=== PATIENT | male | born 1945 | race Caucasian/White ===

== ENCOUNTER 2016-07-11 10:26 | Inpatient (IN) | payer OTHER ==
[~2016-07-11] VITALS: Ht 170.1 cm; Wt 69.5 kg
[2016-07-11] VITALS (9 sets, daily range): BP systolic 119–180; BP diastolic 62–105
--- NOTE | ~2016-07-11 | PR ---
[place], [place] PROGRESS NOTE NAME: JAMEL PINON [facility] #: [id number] UNIT #: [id number] ROOM: 522 DOCTOR: JUAREZ OHARA MD BIRTHDATE: [birth year] DOS: 07/14/2016 SUBJECTIVE: The patient has no complaints. He feels good. OBJECTIVE: VITAL SIGNS: Blood pressure is 129/82, pulse of 80s, respirations 18, temperature 98.5. LUNGS: Clear. HEART: Regular. ABDOMEN: Soft. EXTREMITIES: Without any edema. ASSESSMENT AND PLAN: 1. Multifocal pneumonia, possible gram negative with patchy consolidation of the medial lung bases. Blood cultures have come back negative. Repeat chest x-ray yesterday showed complete clearing of the pneumonia. So, the patient is going to be discharged to home today to follow up as an outpatient. 2. Benign hypertension, controlled. 3. Abnormal EKG. Echo was done, which showed diastolic dysfunction stage 1, but no other abnormalities were noted. A trivial aortic stenosis was also seen. JUAREZ OHARA MD CM:PNTRANS [id number] JUAREZ OHARA MD 07/14/16 1110 interface
--- NOTE | ~2016-07-11 | PR ---
[place], [place] PROGRESS NOTE NAME: JAMEL PINON [facility] #: [id number] UNIT #: [id number] ROOM: 522 DOCTOR: JUAREZ OHARA MD BIRTHDATE: [birth year] DOS: 07/13/2016 SUBJECTIVE: The patient feels good and is not having any complaints. OBJECTIVE: VITAL SIGNS: Blood pressure is 136/63, pulse of 86, respirations 20, temperature 98.4. LUNGS: Diminished breath sounds, clear this morning. HEART: Regular. ABDOMEN: Obese. EXTREMITIES: Without any edema. ASSESSMENT AND PLAN: 1. The patient admitted with multifocal pneumonia, on IV antibiotics. Blood cultures are pending. Repeat chest x-ray will be ordered today to see whether there is any improvement. 2. Benign hypertension. Echocardiogram is ordered. Check LV function. JUAREZ OHARA MD CM:HARJIT [id number] JUAREZ OHARA MD 07/13/16 222 interface
--- NOTE | ~2016-07-11 | DS ---
[place], [place] DISCHARGE SUMMARY NAME: JAMEL PINON [facility] #: [id number] UNIT #: [id number] ROOM: 522 DOCTOR: JUAREZ OHARA MD BIRTHDATE: [birth year] DOS: 07/14/2016 DIAGNOSES: 1. Bilateral pneumonia with consolidation resolved, possible gram negative. 2. Acute respiratory distress. 3. Hypoxic respiratory failure, acute. 4. Benign hypertension. 5. Echocardiogram shows diastolic dysfunction. 6. Peripheral neuropathy. 7. Degenerative joint disease, status post right hip replacement. 8. Chronic pain. MEDICATIONS: Same as on admission. Only new prescription given was Ceftin 250 twice daily for 5 days. HOSPITAL COURSE: The patient is 71 years old, comes into the Emergency Room with complaints of difficulty breathing. Please review the H and P for details. After admission, the patient was placed on IV antibiotics. Blood cultures were ordered. The patient had pneumonia with consolidation. After being placed on antibiotics, the patient did not have any new complaints. Oxygen saturation improved and he has come off the oxygen. Chest x-ray finally on shows complete clearing of pneumonia. Echocardiogram shows the above-mentioned findings. The patient is therefore being discharged to home to be followed up as an outpatient. JUAREZ OHARA MD CM:MARIA [id number] JUAREZ OHARA MD 07/14/16 0834 interface
--- NOTE | ~2016-07-11 | EKG ---
[place], [place] ELECTROCARDIOGRAM REPORT NAME: JAMEL PINON UNIT #: [id number] ROOM: 522 DOCTOR: DAYO MIGUEL MD BIRTHDATE: [birth year] DOS: 07/11/2016 TIME: 10:47 a.m. Sinus rhythm with low voltage in the extremity leads. Poor precordial R-wave progression. Abnormal electrocardiogram. DAYO MIGUEL MD CM:EKGRPT:ELECTROCARDIOGRAM REPORT [id number] DAYO MIGUEL MD
--- NOTE | ~2016-07-11 | WRIGHTHP ---
[place], [place] PATIENT HISTORY AND PHYSICAL EXAM NAME: JAMEL PINON [facility] #: [id number] UNIT #: [id number] ROOM: 522 DOCTOR: JUAREZ OHARA MD BIRTHDATE: [birth year] DOS: 07/11/2016 HISTORY OF PRESENT ILLNESS: The patient is 71 years old. The patient is very well known to us. The patient states that he has been sick for the last couple of days with cough and shortness of breath. The patient decided to come in to the Emergency Room because of his history of pneumonia. Routine blood work and chest x-ray was done and was found to have pneumonia with hypoxic respiratory failure, and he was admitted. He denies having any chest pains, any palpitations, does not have any fever or chills, does not have any abdominal pain, any nausea, any emesis. PAST MEDICAL HISTORY: Significant for; 1. Chronic pain for which he sees the pain clinic. 2. History of pneumonia about a year ago. 3. Peripheral neuropathy. 4. Benign hypertension. 5. Primary insomnia. MEDICATIONS: Amlodipine 5 mg daily, gabapentin 600 mg twice daily, Naprosyn 500 b.i.d., MiraLax 17 g daily. SOCIAL HISTORY: Nonsmoker, does not use any alcohol. PHYSICAL EXAMINATION: GENERAL: He is awake and alert and oriented, in mild respiratory distress. VITAL SIGNS: Graphic trend shows that he is afebrile. Blood pressure is 142/80, pulse of 76, respirations 16. LUNGS: Diminished breath sounds. Scattered rales heard at the bases. HEART: Regular. ABDOMEN: Obese, soft. EXTREMITIES: Without any edema. LABORATORY DATA: Lactic acid normal at 1.3. WBC count is 11.7, platelets are normal. BUN 10, creatinine 0.9. Electrolytes were normal. ASSESSMENT AND PLAN: 1. Multifocal pneumonia. The patient is placed on IV antibiotics. 2. Blood cultures were done in the ER, elevated white cell count was noted. 3. Acute hypoxic respiratory failure. Supplementation has been ordered. The pneumonia is most likely Gram-negative. 4. Benign hypertension, controlled. 5. Chronic pain syndrome, stable on the current dose of medications. [place], [place] PATIENT HISTORY AND PHYSICAL EXAM NAME: JAMEL PINON [facility] #: [id number] UNIT #: [id number] ROOM: 522 DOCTOR: JUAREZ OHARA MD BIRTHDATE: [birth year] JUAREZ OHARA MD CM:HISPHYS:PATIENT HISTORY AND PHYSICAL EXAMINATION 7 9 JUAREZ OHARA MD 07/12/16939 interface
[~2016-07-11 10:26] MED LIST: MEDROL DOSEPAK4 MG PO; MS CONTIN30 MG PO; MS CONTIN60 MG PO
[2016-07-11] MEDS ORDERED: AMLODIPINE BESYL5 MG PO (10:38)
[2016-07-11] MEDS ORDERED: NEXIUM20 MG/PACK PO (10:38)
[2016-07-11] MEDS ORDERED: GABAPENTIN TAB600 MG PO (10:38)
[2016-07-11 10:45] LABS: BASO % 0.3 % (0.0-1.0); EOS # 0.1 10*3/uL (0.0-0.4); EOS % 0.9 % (1.0-4.0); HEMATOCRIT 43.2 % (42.0-52.0); HEMOGLOBIN 14.3 g/dl (14.0-18.0); IG # 0.1 10*3/uL (0.0-0.1); LYMPH % 8.8 % (27.0-41.0); MEAN CELL VOLUME 89.4 fl (80.0-94.0); MEAN CORPUSCULAR HGB 29.6 pg (27.0-31.0); MEAN CORPUSCULAR HGB CONC 33.1 g/dl (33.0-37.0); MEAN PLATELET VOLUME 10.1 fl (9.6-12.3); MONO # 0.7 10*3/uL (0.1-1.0); MONO % 5.7 % (3.0-9.0); NEUT # 9.8 10*3/uL (2.3-7.9); NEUT % 83.5 % (47.0-73.0); PLATELET COUNT AUTOMATED 215 10*3/uL (130-400); RED BLOOD COUNT 4.83 10*6/uL (4.50-5.90); RED CELL DISTRI WIDTH 13.4 % (0-14.5); WHITE BLOOD COUNT 11.7 10*3/uL (4.8-10.8)
[2016-07-11 11:01] LABS: ALBUMIN 3.1 gm/dl (3.1-4.5); ALKALINE PHOSPHATASE 110 U/L (45-117); BILIRUBIN, TOTAL 0.9 mg/dl (0.2-1.0); BUN 10 mg/dl (7-24); CARBON DIOXIDE 29 mmol/L (21-32); CHLORIDE 105 mmol/L (98-107); EST GLOM FILT AFRICAN AMERICAN > 60 ml/min; GLUCOSE 120 mg/dL (65-99); POTASSIUM 3.9 mmol/L (3.5-5.1); SGOT/AST 26 IU/L (3-35); SGPT/ALT 27 U/L (12-78); SODIUM 142 mmol/L (136-145); TOTAL PROTEIN 7.7 gm/dL (6.4-8.2)
[2016-07-11 11:02] LABS: TROPONIN I < 0.015 ng/ml (<0.045)
[2016-07-11] MEDS ORDERED: CLARITIN10 MG PO (11:10)
[2016-07-11] MEDS ORDERED: PREDNISONE10 MG PO (11:10)
[2016-07-11] MEDS ORDERED: ROBITUSSIN DM 105 ML PO (11:10)
[2016-07-11] MEDS ORDERED: FLONASE ALLERG9.9 ML NAS (11:10)
[2016-07-11] MEDS ORDERED: EC NAPROSYN500 MG PO (13:54)
[2016-07-11] MEDS ORDERED: MIRALAX17 GM PO (13:55)
[2016-07-12] VITALS: BP 102/53
[2016-07-12 08:00] VITALS: BP 135/81
[2016-07-12 12:00] VITALS: BP 120/69
[2016-07-12 16:00] VITALS: BP 102/53
[2016-07-12 20:00] VITALS: BP 140/75
[2016-07-13] VITALS: BP 136/63
[2016-07-13 08:00] VITALS: BP 148/87
[2016-07-13 12:00] VITALS: BP 129/72
[2016-07-13 16:00] VITALS: BP 121/66
[2016-07-13 20:00] VITALS: BP 119/67
[2016-07-14] VITALS: BP 129/82
[2016-07-14 08:00] VITALS: BP 130/92
[2016-07-14] MEDS ORDERED: CEFUROXIME AXE250 MG PO (08:10)
== END 2016-07-14 09:15 | disposition home or self-care (01) | DRG 177 ==
LOC: ED 10:26 → 5E 12:21 → EDHOLD 12:21 → 5E 12:39
PROVIDERS: Nurse Practitioner Family
DX: J15.6 Pneumonia due to other Gram-negative bacteria (principal); J96.01 Acute respiratory failure with hypoxia; I10 Essential (primary) hypertension; Z96.641 Presence of right artificial hip joint; M19.90 Unspecified osteoarthritis, unspecified site; G62.9 Polyneuropathy, unspecified; G89.4 Chronic pain syndrome; R94.31 Abnormal electrocardiogram [ECG] [EKG]

== ENCOUNTER 2017-04-21 10:24 | Inpatient (IN) | payer OTHER ==
[~2017-04-21] VITALS: Ht 172.7 cm; Wt 60.4 kg
--- NOTE | ~2017-04-21 | CON ---
[place], [place] REPORT OF CONSULTATION NAME: JAMEL PNION [facility] #: [id number] UNIT #: [id number] ROOM: 519 DOCTOR: JAMES HARRISON MD,SILVINO BIRTHDATE: [birth year] DOS: 04/26/2017 PULMONARY CONSULTATION, EVALUATION AND MANAGEMENT CONSULTATION REQUESTED BY: Dr. Gwen Lebron. REASON FOR CONSULTATION: To assess the abnormal finding of the CT scan of the chest with possible malignancy and the process. HISTORY OF PRESENT ILLNESS: A 72-year-old white male who has been admitted under care of Dr. Gwen Lebron on 04/21. The patient was brought to the hospital. The patient has been noted with significant increased shortness of breath, difficulty breathing. The shortness of breath has been noted gradually progressive. The patient was complaining of symptoms of excessive coughing, intermittent sputum expectoration, which is described greenish at times. Sometimes, it was described to be yellowish. There was no hemoptysis. The patient denies symptoms of wheezing. Denies symptoms of acute chest pain. He stated lost about 15 pounds of body weight in the past 4-5 weeks. The patient denies any symptoms of chest trauma. He has a chest x-ray, which was done reported with findings of pneumonia. He has a CT scan of the chest, which was done yesterday, which shows more abnormality described in my latter part of the consultation. The patient is noted quite anxious and eager and wanted to be discharged home today as told to me by the patient as well as Dr. Gwen Lebron. REVIEW OF SYSTEMS: CONSTITUTIONAL SYMPTOMS: The patient was complaining of somewhat fatigued. Denies symptoms of fever or chills. A 15 pounds of body weight loss was described. He was also noted reduction of the appetite and stating that it has been noted somewhat better at this time. EYES: Denies any burning, dryness, redness or discharge. EAR, NOSE, THROAT SYMPTOMS: Denies sore throat, hoarseness, otalgia, postnasal drainage or epistaxis. CARDIOVASCULAR: Denies any symptoms of chest pain. Denies any palpitation, edema or pain of the lower extremities. GASTROINTESTINAL SYMPTOMS: Weight loss previously reported. There were no symptoms of nausea, vomiting, diarrhea, abdominal pain, hematemesis, melena, or hematochezia. GENITOURINARY SYMPTOMS: No dysuria, suprapubic pain, or hematuria. MUSCULOSKELETAL: No acute joint pain, redness, or tenderness. SKIN: No lesions or rashes. CENTRAL NERVOUS SYSTEM: No dizziness, headache, diplopia, syncopal episodes or seizures. Remaining systems were reviewed. They were noted all negative. PAST MEDICAL HISTORY: Noted as: 1. Hypertension. 2. Degenerative arthritis. SOCIAL HISTORY: The patient recently . He has 2 children. Smoking was [place], [place] REPORT OF CONSULTATION NAME: JAMEL PINON UNIT #: [id number] ROOM: [facility] DOCTOR: JAMES HARRISON MDSILVINO BIRTHDATE: [birth year] noted since teens 1.5 pack of cigarettes per day, that was discontinued since 1999. He has worked in the [employer] for about 15 years. There is no history of chronic alcohol use or any history of illicit drugs. SURGICAL HISTORY: 1. The patient has a right hip prosthesis with 3 surgeries done previously. 2. Surgery on the right knee as well. FAMILY HISTORY: Essentially noted noncontributory. MEDICATIONS: Medications, which have been currently administered noted as use of omeprazole, morphine sulfate, amlodipine, Norvasc, Neurontin, Rocephin and others. DRUG ALLERGY HISTORY: NOTED ALLERGY TO THE BACTRIM. PHYSICAL EXAMINATION: GENERAL: This is a 72-year-old male, appears frail, sitting on the chair, without any distress. The patient's [id number] is present in the room with the RN as well. VITAL SIGNS: Height of 5 feet 8 inches, weight of 133 pounds, BMI 20. Vital signs, which have been recorded showed the temperature noted as normal, respiratory rate range between 18-20, heart rate of 91-101. Blood pressure of 93/60-114/68. Pulse oxygen saturation recorded on room air 94% saturation. HEENT: Head was atraumatic. Eyes nonicterus. NECK: Supple. There were no JVD elevation. There was no lymphadenopathy palpable in the neck. CARDIOVASCULAR SYSTEM: S1, S2 audible. LUNGS: Noted without any wheezing. Decreased breath sounds are noted somewhat on the right lung. ABDOMEN: Noted flat, soft, nontender. Bowel sounds present. EXTREMITIES: Noted without any edema, clubbing or cyanosis. CENTRAL NERVOUS SYSTEM: Cranial nerves 2-12 intact. SKIN: Without any lesions or rashes. MUSCULOSKELETAL SYMPTOMS: Without any acute deformities. LABORATORY DATA: CBC on 04/21 - WBC count 11, hemoglobin 11.5 and 35.7, platelet count was normal. CBC that was done today - WBC count 19.7, hemoglobin 12.9, hematocrit 39.8, platelet count of 464,000, 83% segmented neutrophils. BMP was noted as normal today. The CMP on 04/21 noted normal BUN and creatinine, albumin 1.8, AST of 44. Blood culture on 04/21 of this month 2 sets showed no bacterial growth. Radiology data was personally reviewed on this admission and previously. The chest x-ray that was done on 07/11/2016 reviewed changes of COPD, hyperinflation without any acute pulmonary infiltration at that time. Chest x-ray that was done on 04/21/2017 was reviewed shows a large opacity, which was present in the right upper lobe with some pleural thickening, area of consolidation was also considered versus mass lesion at this time and patchy infiltration with some partial volume loss can be excluded. Left lung was noted hyperinflated changes of COPD. CT scan of the chest that was done on 04/25/2017 shows significant severe emphysema changes noted in the upper lungs [place], [place] REPORT OF CONSULTATION NAME: JAMEL PINON [facility] UNIT #: [id number] ROOM: [facility] DOCTOR: JAMES HARRISON MD,[facility] BIRTHDATE: [birth year] with some bolus formation. Cavitary lesion was noted in the left upper lung surrounded by the area of infiltration, consolidation. Additional area of central cavitation was noted in the posterior subsegment. Small patchy infiltration noted in the lower lungs as well. Some other cystic area was noted in the lungs scattered bilaterally as well. The mediastinal window was also seen personally shows possibility of right hilar lymphadenopathy would be considered for this patient. Some area of necrosis was also noted in the area, which was already described in the right upper lobe as well. There was no additional nodular density present in the lungs. IMPRESSION: 1. The patient will be currently admitted to the hospital with gradual weight loss, generally weak and fatigued with current findings noted on CT scan is suggestive of possibility of either necrotizing pneumonia or necrotizing area of malignancy. The differential diagnosis would be considered chronic infection as well resulting in current acute infections. 2. The patient with history of long-term heavy tobacco use until year 1999 with the current finding of chronic obstructive pulmonary disease as well, which has not been formally diagnosed at this time, but there were no findings of acute exacerbation noted at present time. 3. Recent of his spouse and the patient noted to be extremely anxious and would like to be discharged home as well. RECOMMENDATIONS: The patient certainly requires further additional assessment for the current abnormality and for the benefit of doubt with current possibility of pneumonia. The patient will be recommended to start on oral antibiotic for gram-negative coverage with oral antibiotic and combination use of the doxycycline and either ciprofloxacin 500 mg b.i.d. or use of the Levaquin 500 mg daily for another 2 weeks. He will be assessed in the office 2 weeks later with a followup chest x-ray. If the finding remained persistent, additional workup, which will be started was to assess the possibility of lung malignancy agreed by the patient. In case of worsening of symptoms, the patient would be advised to come back to the hospital. He was advised to make changes in his usual calorie support to help improve the overall physical status as well as the patient was noted quite frail. ADDENDUM The assessment and management has been discussed with Dr. Gwen Lebron. He was in agreement with the current recommendation. The [id number] of the patient was also there for the patient's current plan of treatment. [place], [place] REPORT OF CONSULTATION NAME: JAMEL PINON UNIT #: [id number] ROOM: [facility] DOCTOR: SILVINO RUIZ MD BIRTHDATE: [birth year] SILVINO RAMIREZ MD CM:CONSTR:REPORT OF CONSULTATION 1513 04/27/17 0618 interface
--- NOTE | ~2017-04-21 | PR ---
[place], [place] PROGRESS NOTE NAME: JAMEL PINON [facility] #: [id number] UNIT #: [id number] ROOM: 519 DOCTOR: JUAREZ OHARA MD BIRTHDATE: [birth year] DOS: SUBJECTIVE: The patient is doing better, does not have any complaints. He feels well and wants to go home. His cough and shortness of breath have improved. PHYSICAL EXAMINATION: VITAL SIGNS: Blood pressure is 99/60, pulse of 81, respirations 20, temperature 98.2. LUNGS: Diminished breath sounds. No wheezes, rales or rhonchi heard. HEART: Regular. ABDOMEN: Obese, soft. EXTREMITIES: Without any edema. DIAGNOSTIC STUDIES: Chest x-ray did not show any improvement in the pneumonia, so CT of the chest was done, showed advanced emphysema with a mass in the right upper lobe with possibility of lymphangitic spread. ASSESSMENT AND PLAN: 1. Discussed with Dr. Stewart this morning. He will most likely do workup as an outpatient. He will see the patient and decide. I am going to okay his discharge to home on p.o. antibiotics. His elevated white cell count is most likely from the steroids, which should come down on its own. 2. Chronic obstructive pulmonary disease, stable. We will discontinue the steroids IV and place him on p.o. prednisone. JUAREZ OHARA MD CM:PNTRANS 0849 1 JUAREZ OHARA MD 04/26/17901 interface
--- NOTE | ~2017-04-21 | PR ---
[place], [place] PROGRESS NOTE NAME: JAMEL PINON [facility] #: [id number] UNIT #: [id number] ROOM: 519 DOCTOR: YESSY LANDAVERDE MD BIRTHDATE: [birth year] DOS: 04/23/2017 SUBJECTIVE: The patient says his cough is improving. His breathing has also improved. He is feeling much better. OBJECTIVE: VITAL SIGNS: Blood pressure 105/70, pulse ox 96%, breathing normally, heart rate 84 beats per minute, afebrile. GENERAL APPEARANCE: The patient is alert and oriented x 3, in no visible distress. Generalized weakness. HEENT AND NECK: Exam within normal limits. CARDIOVASCULAR SYSTEM: Heart rate is regular in rate and rhythm. S1 and S2 normally audible. LUNGS: Clear to auscultation. ABDOMEN: Soft, nontender. No obvious organomegaly. Bowel sounds are present. EXTREMITIES: Without significant cyanosis or edema. IMPRESSION AND PLAN: 1. Right upper lobe pneumonia, being treated with ceftriaxone and Levaquin, and the patient is clinically improving. I will repeat his chest x-ray on Tuesday. Blood cultures have been negative. 2. Hypertension. Blood pressures are being monitored and treated. 3. History of right hip prosthesis. I will get physical therapy to follow him. 4. Chronic constipation, treated with MiraLax. YESSY LANDAVERDE MD CM:PNTRANS [phone] YESSY LANDAVERDE MD 04/24/17 0846 interface
--- NOTE | ~2017-04-21 | PR ---
[place], [place] PROGRESS NOTE NAME: JAMEL PINON [facility] #: [id number] UNIT #: [id number] ROOM: 519 DOCTOR: YESSY LANDAVERDE MD BIRTHDATE: [birth year] DOS: 04/24/2017 The patient continues to feel better. PHYSICAL EXAMINATION: GENERAL APPEARANCE: The patient is alert and oriented x 3, in no visible distress. HEENT AND NECK: Exam within normal limits. CARDIOVASCULAR SYSTEM: Heart rate is regular in rate and rhythm. S1 and S2 normally audible. LUNGS: Clear to auscultation. ABDOMEN: Soft, nontender. No obvious organomegaly. Bowel sounds are present. EXTREMITIES: Without significant cyanosis or edema. IMPRESSION: 1. Right upper lobe pneumonia, being treated with ceftriaxone and Levaquin. I will order a chest x-ray for tomorrow. 2. Benign essential hypertension. Blood pressure is being treated and monitored. 3. Right hip prosthesis. The patient was ordered physical therapy. 4. Chronic constipation, treated and controlled with MiraLax. YESSY LANDAVERDE MD CM:PNTRANS [phone] YESSY LANDAVERDE MD 04/25/17120 interface
--- NOTE | ~2017-04-21 | PR ---
[place], [place] PROGRESS NOTE NAME: JAMEL PINON [facility] #: [id number] UNIT #: [id number] ROOM: 519 DOCTOR: JUAREZ OHARA MD BIRTHDATE: [birth year] DOS: 04/25/2017 SUBJECTIVE: The patient feels much better, does not have any complaints. OBJECTIVE: VITAL SIGNS: Graphic trend shows pressure 114/68, pulse of 98, respirations 18, temperature 98.3. LUNGS: Diminished breath sounds. No wheezes, rales or rhonchi heard this morning. HEART: Regular. ABDOMEN: Obese. EXTREMITIES: Without any edema. ASSESSMENT AND PLAN: 1. Right upper lobe pneumonia with sepsis pattern. Blood cultures have come back negative. The patient is ordered a chest x-ray today. Clinically, he is much improved. The plan is to discharge him to home if the chest x-ray shows improvement. 2. Benign hypertension, controlled. JUAREZ OHARA MD CM:PNTRANS [phone] JUAREZ OHARA MD 04/25/17 0909 interface
--- NOTE | ~2017-04-21 | DS ---
[place], [place] DISCHARGE SUMMARY NAME: JAMEL PINON UNIT #: [id number] ROOM: 519 DOCTOR: JUAREZ OHARA MD BIRTHDATE: [birth year] DOS: 04/26/2017 DIAGNOSES: 1. 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 2. Severe, panacinar chronic obstructive pulmonary disease. 3. Elevated white cell count from steroid effect. 4. Chronic leg pain from history of hip replacement. 5. Benign hypertension. 6. Peripheral neuropathy. 7. Bilateral lower lobe pneumonia. DISCHARGE MEDICATIONS: The patient's medications on discharge will be tapering dose of prednisone, doxycycline 100 b.i.d., amlodipine 5 daily, gabapentin 600 t.i.d., Naprosyn twice a day p.r.n., MiraLax 17 grams daily p.r.n., morphine 15 mg daily p.r.n. and 30 mg daily, zolpidem 10 at bedtime p.r.n. HOSPITAL COURSE: The patient is 72-year-old. The patient is very well known to us. The patient comes in with complaints of difficulty breathing and cough for the last one month. The patient was seen in the Emergency Room with elevated white cell count 11,000 with sepsis pattern, with a chest x-ray showing right upper lobe pneumonia. The patient was admitted. After admission was placed on IV antibiotics. Blood cultures showed no bacterial growth. The patient clinically is much improved, but the chest x-ray did not show any improvement, so I ordered a CT of the chest, which showed a right upper lobe mass with lymphangitic spread. Discussed with Dr. Stewart this morning. The patient also with left adrenal mass as well as patchy basilar opacities. The patient will have further workup as an outpatient, most likely we will discharge the patient today and then follow with Dr. Stewart. Dr. Stewart will see the patient before discharge and decide on further treatment plan. [place], [place] DISCHARGE SUMMARY NAME: JAMEL PINON UNIT #: [id number] ROOM: 519 DOCTOR: JUAREZ OHARA MD BIRTHDATE: [birth year] JUAREZ OHARA MD CM:MARIA [id number] [id number] JUAREZ OHARA MD 04/26/17 0935 interface
[~2017-04-21 10:24] MED LIST changes: +AMLODIPINE BESYL5 MG PO; +CEFUROXIME AXE250 MG PO; +CLARITIN10 MG PO; +EC NAPROSYN500 MG PO; +FLONASE ALLERG9.9 ML NAS; +GABAPENTIN TAB600 MG PO; +MIRALAX17 GM PO; -MS CONTIN60 MG PO; +NEXIUM20 MG/PACK PO; +PREDNISONE10 MG PO; +ROBITUSSIN DM 105 ML PO
[2017-04-21 10:37] VITALS: BP 102/77
[2017-04-21 11:17] LABS: BASO % 0.1 % (0.0-1.0); EOS % 0.1 % (1.0-4.0); HEMATOCRIT 35.7 % (42.0-52.0); HEMOGLOBIN 11.5 g/dl (14.0-18.0); LYMPH # 1.1 10*3/uL (1.3-4.4); LYMPH % 9.6 % (27.0-41.0); MEAN CELL VOLUME 86.2 fl (80.0-94.0); MEAN CORPUSCULAR HGB 27.8 pg (27.0-31.0); MEAN CORPUSCULAR HGB CONC 32.2 g/dl (33.0-37.0); MEAN PLATELET VOLUME 9.8 fl (9.6-12.3); MONO # 0.5 10*3/uL (0.1-1.0); MONO % 4.6 % (3.0-9.0); NEUT # 9.3 10*3/uL (2.3-7.9); NEUT % 84.8 % (47.0-73.0); PLATELET COUNT AUTOMATED 307 10*3/uL (130-400); RED BLOOD COUNT 4.14 10*6/uL (4.50-5.90); RED CELL DISTRI WIDTH 13.1 % (0-14.5)
[2017-04-21 11:35] LABS: ALBUMIN 1.8 gm/dl (3.1-4.5); ALKALINE PHOSPHATASE 85 U/L (45-117); BUN 8 mg/dl (7-24); CHLORIDE 102 mmol/L (98-107); CREATININE 0.76 mg/dL (0.70-1.30); POTASSIUM 3.5 mmol/L (3.5-5.1); SGOT/AST 44 IU/L (3-35); SGPT/ALT 19 U/L (12-78); SODIUM 138 mmol/L (136-145); TOTAL PROTEIN 7.2 gm/dL (6.4-8.2)
[2017-04-21 12:00] VITALS: BP 111/66
[2017-04-21 13:05] VITALS: BP 117/73
[2017-04-21 13:30] VITALS: BP 117/73
[2017-04-21] MEDS ORDERED: MORPHINE SULFAT15 MG PO (15:25)
[2017-04-21] MEDS ORDERED: MS CONTIN30 MG PO (15:27)
[2017-04-21] MEDS ORDERED: AMBIEN10 M1 PO (15:27)
[2017-04-21] MEDS ORDERED: AMOXICILLIN500 M2 PO (15:28)
[2017-04-21 17:37] VITALS: BP 119/56
[2017-04-21 21:18] VITALS: BP 94/62
[2017-04-22] VITALS: BP 97/53
[2017-04-22 08:00] VITALS: BP 108/68
[2017-04-22 16:00] VITALS: BP 101/58
[2017-04-22 20:55] VITALS: BP 106/62
[2017-04-23] VITALS: BP 102/62
[2017-04-23 08:00] VITALS: BP 102/64
[2017-04-23 12:00] VITALS: BP 93/60
[2017-04-23 16:00] VITALS: BP 105/70
[2017-04-23 20:00] VITALS: BP 113/66
[2017-04-24 08:00] VITALS: BP 100/60
[2017-04-24 13:28] VITALS: BP 96/55
[2017-04-24 16:21] VITALS: BP 101/83
[2017-04-25] VITALS: BP 108/49
[2017-04-25 08:00] VITALS: BP 114/68
[2017-04-25 16:00] VITALS: BP 91/62
[2017-04-26] VITALS: BP 99/60
[2017-04-26 07:31] LABS: HEMATOCRIT 39.8 % (42.0-52.0); HEMOGLOBIN 12.9 g/dl (14.0-18.0); MEAN CELL VOLUME 87.7 fl (80.0-94.0); MEAN CORPUSCULAR HGB 28.4 pg (27.0-31.0); MEAN CORPUSCULAR HGB CONC 32.4 g/dl (33.0-37.0); PLATELET COUNT AUTOMATED 464 10*3/uL (130-400); RED BLOOD COUNT 4.54 10*6/uL (4.50-5.90); RED CELL DISTRI WIDTH 13.3 % (0-14.5); WHITE BLOOD COUNT 19.7 10*3/uL (4.8-10.8)
[2017-04-26 07:49] LABS: BUN 19 mg/dl (7-24); CHLORIDE 101 mmol/L (98-107); CREATININE 1.08 mg/dL (0.70-1.30); POTASSIUM 3.8 mmol/L (3.5-5.1); SODIUM 137 mmol/L (136-145)
[2017-04-26 08:00] VITALS: BP 97/56
[2017-04-26 08:02] LABS: PLATELET SUFFICIENCY HIGH (NORMAL); TOTAL CELLS COUNTED 100 #CELLS
[2017-04-26] MEDS ORDERED: DOXYCYCLINE100 MG PO (08:47)
[2017-04-26] MEDS ORDERED: PREDNISONE5 MG PO (08:50)
[2017-04-26] MEDS ORDERED: CIPRO500 MG PO (09:05)
== END 2017-04-26 12:01 | disposition home or self-care (01) | DRG 190 ==
LOC: ED 10:24 → EDHOLD 14:17 → 5E 14:17
PROVIDERS: Emergency Medicine; Internal Medicine
DX: J44.0 Chronic obstructive pulmonary disease with (acute) lower respiratory infection (principal); J18.1 Lobar pneumonia, unspecified organism; Z96.649 Presence of unspecified artificial hip joint; K59.09 Other constipation; M19.90 Unspecified osteoarthritis, unspecified site; R91.8 Other nonspecific abnormal finding of lung field; G89.29 Other chronic pain; M79.606 Pain in leg, unspecified; Z88.2 Allergy status to sulfonamides; Z88.8 Allergy status to other drugs, medicaments and biological substances; Z79.899 Other long term (current) drug therapy; Z91.19 Patient's noncompliance with other medical treatment and regimen

== ENCOUNTER → 2017-05-12 | Outpatient (CLI) | payer OTHER ==
[~2017-05-12] MED LIST changes: +AMBIEN10 M1 PO; +AMOXICILLIN500 M2 PO; +CIPRO500 MG PO; +DOXYCYCLINE100 MG PO; +MORPHINE SULFAT15 MG PO; +PREDNISONE5 MG PO
[2017-05-12 15:49] LABS: BASO % 0.3 % (0.0-1.0); EOS # 0.1 10*3/uL (0.0-0.4); EOS % 1.7 % (1.0-4.0); HEMATOCRIT 38.2 % (42.0-52.0); HEMOGLOBIN 12.2 g/dl (14.0-18.0); LYMPH # 2.3 10*3/uL (1.3-4.4); LYMPH % 31.5 % (27.0-41.0); MEAN CELL VOLUME 89.3 fl (80.0-94.0); MEAN CORPUSCULAR HGB 28.5 pg (27.0-31.0); MEAN CORPUSCULAR HGB CONC 31.9 g/dl (33.0-37.0); MEAN PLATELET VOLUME 9.7 fl (9.6-12.3); MONO # 0.6 10*3/uL (0.1-1.0); MONO % 8.2 % (3.0-9.0); NEUT # 4.2 10*3/uL (2.3-7.9); NEUT % 57.7 % (47.0-73.0); PLATELET COUNT AUTOMATED 230 10*3/uL (130-400); RED BLOOD COUNT 4.28 10*6/uL (4.50-5.90); RED CELL DISTRI WIDTH 15.1 % (0-14.5); WHITE BLOOD COUNT 7.2 10*3/uL (4.8-10.8)
[2017-05-12 16:04] LABS: ALBUMIN 2.7 gm/dl (3.1-4.5); ALKALINE PHOSPHATASE 111 U/L (45-117); BUN 7 mg/dl (7-24); CHLORIDE 103 mmol/L (98-107); CREATININE 0.79 mg/dL (0.70-1.30); POTASSIUM 3.6 mmol/L (3.5-5.1); SGOT/AST 21 IU/L (3-35); SGPT/ALT 28 U/L (12-78); SODIUM 138 mmol/L (136-145); TOTAL PROTEIN 7.8 gm/dL (6.4-8.2)
== END | disposition home or self-care (01) ==
LOC: LAB 15:17
PROVIDERS: Urology
DX: Z12.5 Encounter for screening for malignant neoplasm of prostate (principal); D40.0 Neoplasm of uncertain behavior of prostate; I10 Essential (primary) hypertension

== ENCOUNTER 2017-05-29 08:49 | Emergency (ER) | payer OTHER ==
[~2017-05-29] VITALS: Ht 172.7 cm; Wt 63.5 kg
== END 2017-05-29 09:35 | disposition home or self-care (01) ==
LOC: ED 08:49
DX: S05.02XA Injury of conjunctiva and corneal abrasion without foreign body, left eye, initial encounter (principal); H10.9 Unspecified conjunctivitis; F17.200 Nicotine dependence, unspecified, uncomplicated; Z88.2 Allergy status to sulfonamides; Z88.8 Allergy status to other drugs, medicaments and biological substances; Z79.899 Other long term (current) drug therapy; X58.XXXA Exposure to other specified factors, initial encounter; Y93.89 Activity, other specified; Y92.89 Other specified places as the place of occurrence of the external cause; Y99.8 Other external cause status

== ENCOUNTER → 2017-06-10 | Outpatient (CLI) | payer OTHER ==
[2017-06-10 09:43] LABS: BUN 6 mg/dl (7-24); CREATININE 0.92 mg/dL (0.70-1.30)
== END | disposition home or self-care (01) ==
LOC: CT 06-09 10:00 → LAB 09:13 → CT 09:13
PROVIDERS: Internal Medicine Critical Care Medicine
DX: J18.9 Pneumonia, unspecified organism (principal)

== ENCOUNTER → 2017-06-27 | Outpatient (CLI) | payer OTHER | END | disposition home or self-care (01) | LOC: CARD 14:17 | DX: Z01.818 Encounter for other preprocedural examination (principal); R94.31 Abnormal electrocardiogram [ECG] [EKG] ==

== ENCOUNTER 2017-08-30 18:28 | Emergency (ER) | payer OTHER ==
[~2017-08-30] VITALS: Ht 172.7 cm; Wt 67.1 kg
[2017-08-30 18:31] VITALS: BP 124/71
[2017-08-30 19:21] LABS: BASO # 0.1 10*3/uL (0.0-0.1); BASO % 0.6 % (0.0-1.0); EOS # 0.2 10*3/uL (0.0-0.4); EOS % 1.8 % (1.0-4.0); HEMATOCRIT 42.1 % (42.0-52.0); HEMOGLOBIN 13.9 g/dl (14.0-18.0); LYMPH # 2.7 10*3/uL (1.3-4.4); LYMPH % 31.9 % (27.0-41.0); MEAN CELL VOLUME 87.9 fl (80.0-94.0); MONO # 0.8 10*3/uL (0.1-1.0); MONO % 9.2 % (3.0-9.0); NEUT # 4.7 10*3/uL (2.3-7.9); NEUT % 56.3 % (47.0-73.0); PLATELET COUNT AUTOMATED 165 10*3/uL (130-400); RED BLOOD COUNT 4.79 10*6/uL (4.50-5.90); RED CELL DISTRI WIDTH 13.2 % (0-14.5); WHITE BLOOD COUNT 8.4 10*3/uL (4.8-10.8)
[2017-08-30 19:36] LABS: ACT PARTIAL THROMBO TIME 24.5 SECONDS (20.8-31.5)
[2017-08-30 19:38] LABS: ALBUMIN 3.4 gm/dl (3.1-4.5); ALKALINE PHOSPHATASE 116 U/L (45-117); BUN 11 mg/dl (7-24); CHLORIDE 109 mmol/L (98-107); CREATININE 1.07 mg/dL (0.70-1.30); LIPASE 73 U/L (73-393); POTASSIUM 3.7 mmol/L (3.5-5.1); SGOT/AST 27 IU/L (3-35); SGPT/ALT 21 U/L (12-78); SODIUM 142 mmol/L (136-145); TOTAL PROTEIN 6.8 gm/dL (6.4-8.2)
[2017-08-30 19:39] VITALS: BP 130/71
[2017-08-30 19:41] LABS: TROPONIN I < 0.015 ng/ml (<0.045)
== END 2017-08-30 21:21 | disposition left against medical advice (07) ==
LOC: ED 18:28 → EDHOLD 20:31 → ED 21:21
PROVIDERS: Nurse Practitioner Family
DX: R07.89 Other chest pain (principal); I50.9 Heart failure, unspecified; Z96.643 Presence of artificial hip joint, bilateral; Z87.01 Personal history of pneumonia (recurrent); Z79.899 Other long term (current) drug therapy; Z88.1 Allergy status to other antibiotic agents; Z88.8 Allergy status to other drugs, medicaments and biological substances

== ENCOUNTER → 2017-09-13 | Outpatient (CLI) | payer OTHER | END | disposition home or self-care (01) | LOC: CT 09-08 14:00 | DX: J43.9 Emphysema, unspecified (principal) ==

== ENCOUNTER 2018-04-04 11:25 | Emergency (ER) | payer OTHER ==
[2018-04-04] MEDS ORDERED: NORCO 5-325 TA1 EACH PO (13:05)
== END 2018-04-04 12:55 | disposition home or self-care (01) ==
LOC: ED 11:25
DX: S72.424A Nondisplaced fracture of lateral condyle of right femur, initial encounter for closed fracture (principal); Z88.2 Allergy status to sulfonamides; Z79.899 Other long term (current) drug therapy; X50.1XXA Overexertion from prolonged static or awkward postures, initial encounter; Y93.89 Activity, other specified; Y92.480 Sidewalk as the place of occurrence of the external cause; Y99.8 Other external cause status

== ENCOUNTER → 2018-04-06 | Outpatient (CLI) | payer OTHER ==
[~2018-04-06] MED LIST changes: +NORCO 5-325 TA1 EACH PO
== END | disposition home or self-care (01) ==
LOC: ORTHO 02:21
DX: S32.89XD Fracture of other parts of pelvis, subsequent encounter for fracture with routine healing (principal); S72.8X1D Other fracture of right femur, subsequent encounter for closed fracture with routine healing; X58.XXXD Exposure to other specified factors, subsequent encounter

== ENCOUNTER → 2018-04-26 | Outpatient (CLI) | payer OTHER | END | disposition home or self-care (01) | LOC: ORTHO 02:14 | DX: M81.0 Age-related osteoporosis without current pathological fracture (principal); Z96.641 Presence of right artificial hip joint ==

== ENCOUNTER → 2018-05-26 | Outpatient (CLI) | payer OTHER | END | disposition home or self-care (01) | LOC: ORTHO 01:38 | DX: S72.491D Other fracture of lower end of right femur, subsequent encounter for closed fracture with routine healing (principal); X58.XXXD Exposure to other specified factors, subsequent encounter ==

== ENCOUNTER → 2018-07-21 | Outpatient (CLI) | payer OTHER | END | disposition home or self-care (01) | LOC: ORTHO 02:29 | DX: S72.491D Other fracture of lower end of right femur, subsequent encounter for closed fracture with routine healing (principal); M17.11 Unilateral primary osteoarthritis, right knee; M85.861 Other specified disorders of bone density and structure, right lower leg; X58.XXXD Exposure to other specified factors, subsequent encounter ==

== ENCOUNTER → 2018-08-15 | Outpatient (CLI) | payer OTHER | END | disposition home or self-care (01) | LOC: RAD 19:10 | DX: M25.512 Pain in left shoulder (principal) ==

== ENCOUNTER → 2018-09-20 | Outpatient (CLI) | payer OTHER | END | disposition home or self-care (01) | LOC: RAD 13:00 | DX: M81.0 Age-related osteoporosis without current pathological fracture (principal) ==

== ENCOUNTER → 2018-10-05 | Outpatient (CLI) | payer OTHER | END | disposition home or self-care (01) | LOC: RAD 14:24 | DX: M19.012 Primary osteoarthritis, left shoulder (principal); M85.822 Other specified disorders of bone density and structure, left upper arm ==

== ENCOUNTER → 2018-11-23 | Outpatient (CLI) | payer OTHER | END | disposition home or self-care (01) | LOC: RAD 14:50 | DX: M19.012 Primary osteoarthritis, left shoulder (principal); R20.0 Anesthesia of skin; R20.2 Paresthesia of skin ==

== ENCOUNTER → 2019-05-23 | Outpatient (CLI) | payer OTHER ==
[2019-05-23 10:09] LABS: BASO % 0.6 % (0.0-1.0); EOS # 0.2 10*3/uL (0.0-0.4); EOS % 2.9 % (1.0-4.0); HEMOGLOBIN 14.4 g/dl (14.0-18.0); LYMPH # 2.3 10*3/uL (1.3-4.4); LYMPH % 32.3 % (27.0-41.0); MEAN CELL VOLUME 87.6 fl (80.0-94.0); MEAN CORPUSCULAR HGB 29.3 pg (27.0-31.0); MEAN CORPUSCULAR HGB CONC 33.5 g/dl (33.0-37.0); MEAN PLATELET VOLUME 10.6 fl (9.6-12.3); MONO # 0.7 10*3/uL (0.1-1.0); MONO % 9.1 % (3.0-9.0); NEUT % 54.8 % (47.0-73.0); PLATELET COUNT AUTOMATED 197 10*3/uL (130-400); RED BLOOD COUNT 4.91 10*6/uL (4.50-5.90); RED CELL DISTRI WIDTH 12.5 % (0-14.5); WHITE BLOOD COUNT 7.2 10*3/uL (4.8-10.8)
[2019-05-23 10:42] LABS: ALBUMIN 3.6 gm/dl (3.1-4.5); ALKALINE PHOSPHATASE 115 U/L (45-117); BUN 7 mg/dl (7-24); CHLORIDE 103 mmol/L (98-107); CHOLESTEROL 174 mg/dL (<200); CREATININE 1.07 mg/dL (0.70-1.30); FREE T4 1.14 ng/dl (0.76-1.46); HDL CHOLESTEROL 55 mg/dl (40-60); LDL CHOLESTEROL 94 mg/dL (9-159); POTASSIUM 2.7 mmol/L (3.5-5.1); SGOT/AST 17 IU/L (3-35); SGPT/ALT 19 U/L (12-78); SODIUM 141 mmol/L (136-145); TOTAL PROTEIN 7.5 gm/dL (6.4-8.2); TRIGLYCERIDES 123 mg/dl (<150); VLDL CHOLESTEROL 25 mg/dL (6-40)
[2019-05-23 11:14] LABS: VITAMIN D, 25-HYDROXY 111.1 ng/mL (30-100)
== END | disposition home or self-care (01) ==
LOC: LAB 09:25
PROVIDERS: Internal Medicine
DX: I10 Essential (primary) hypertension (principal); E55.9 Vitamin D deficiency, unspecified; E78.2 Mixed hyperlipidemia; D52.9 Folate deficiency anemia, unspecified; D51.9 Vitamin B12 deficiency anemia, unspecified

== ENCOUNTER → 2019-05-25 | Outpatient (CLI) | payer OTHER ==
[2019-05-25 10:50] LABS: BASO % 0.3 % (0.0-1.0); EOS # 0.2 10*3/uL (0.0-0.4); EOS % 1.5 % (1.0-4.0); HEMATOCRIT 45.2 % (42.0-52.0); HEMOGLOBIN 15.1 g/dl (14.0-18.0); LYMPH # 2.2 10*3/uL (1.3-4.4); LYMPH % 19.1 % (27.0-41.0); MEAN CELL VOLUME 87.9 fl (80.0-94.0); MEAN CORPUSCULAR HGB 29.4 pg (27.0-31.0); MEAN CORPUSCULAR HGB CONC 33.4 g/dl (33.0-37.0); MEAN PLATELET VOLUME 10.6 fl (9.6-12.3); MONO # 0.6 10*3/uL (0.1-1.0); MONO % 4.8 % (3.0-9.0); NEUT # 8.6 10*3/uL (2.3-7.9); PLATELET COUNT AUTOMATED 221 10*3/uL (130-400); RED BLOOD COUNT 5.14 10*6/uL (4.50-5.90); RED CELL DISTRI WIDTH 12.3 % (0-14.5); WHITE BLOOD COUNT 11.7 10*3/uL (4.8-10.8)
[2019-05-25 11:21] LABS: ALBUMIN 3.8 gm/dl (3.1-4.5); BUN 6 mg/dl (7-24); CHLORIDE 103 mmol/L (98-107); CREATININE 1.11 mg/dL (0.70-1.30); POTASSIUM 3.1 mmol/L (3.5-5.1); SGOT/AST 18 IU/L (3-35); SGPT/ALT 17 U/L (12-78); SODIUM 140 mmol/L (136-145); TOTAL PROTEIN 8.1 gm/dL (6.4-8.2)
[2019-05-25 11:24] LABS: ALKALINE PHOSPHATASE 137 U/L (45-117)
== END | disposition home or self-care (01) ==
LOC: LAB 10:21
PROVIDERS: Urology
DX: Z12.5 Encounter for screening for malignant neoplasm of prostate (principal); R53.83 Other fatigue; D40.0 Neoplasm of uncertain behavior of prostate

== ENCOUNTER → 2019-06-11 | Outpatient (CLI) | payer OTHER | END | disposition home or self-care (01) | LOC: US 14:00 → CT 15:00 → US 16:00 | DX: N43.3 Hydrocele, unspecified (principal); K40.90 Unilateral inguinal hernia, without obstruction or gangrene, not specified as recurrent; M47.815 Spondylosis without myelopathy or radiculopathy, thoracolumbar region; J98.11 Atelectasis; I71.4 Abdominal aortic aneurysm, without rupture; Z96.643 Presence of artificial hip joint, bilateral ==

== ENCOUNTER → 2019-06-19 | Outpatient (CLI) | payer OTHER ==
[2019-06-20 08:06] LABS: PROSTATE SPECIFIC AG FREE 0.22 ng/mL
== END | disposition home or self-care (01) ==
LOC: LAB 12:34
PROVIDERS: Nurse Practitioner Family
DX: D40.0 Neoplasm of uncertain behavior of prostate (principal)

== ENCOUNTER → 2019-10-08 | Outpatient (CLI) | payer OTHER | END | disposition home or self-care (01) | LOC: RAD 14:14 | DX: M47.816 Spondylosis without myelopathy or radiculopathy, lumbar region (principal) ==

== ENCOUNTER → 2019-12-25 | Outpatient (CLI) | payer OTHER | END | disposition home or self-care (01) | LOC: RAD 13:06 → CT 12-27 10:00 | PROVIDERS: ATTEND Internal Medicine | DX: M81.0 Age-related osteoporosis without current pathological fracture (principal) ==

== ENCOUNTER → 2019-12-27 | Outpatient (CLI) | payer OTHER | END | disposition home or self-care (01) | LOC: CT 09:23 | PROVIDERS: ATTEND Internal Medicine | DX: I71.4 Abdominal aortic aneurysm, without rupture (principal); K57.30 Diverticulosis of large intestine without perforation or abscess without bleeding; K40.90 Unilateral inguinal hernia, without obstruction or gangrene, not specified as recurrent; K59.00 Constipation, unspecified ==

== ENCOUNTER → 2020-07-18 | Outpatient (CLI) | payer OTHER ==
[2020-07-18 10:21] LABS: BASO % 0.4 % (0.0-1.0); EOS # 0.3 10*3/uL (0.0-0.4); EOS % 4.1 % (1.0-4.0); HEMATOCRIT 41.7 % (42.0-52.0); LYMPH # 1.7 10*3/uL (1.3-4.4); LYMPH % 23.1 % (27.0-41.0); MEAN CORPUSCULAR HGB 29.3 pg (27.0-31.0); MEAN CORPUSCULAR HGB CONC 32.1 g/dl (33.0-37.0); MEAN PLATELET VOLUME 10.6 fl (9.6-12.3); MONO # 0.6 10*3/uL (0.1-1.0); NEUT # 4.5 10*3/uL (2.3-7.9); NEUT % 63.1 % (47.0-73.0); PLATELET COUNT AUTOMATED 229 10*3/uL (130-400); RED BLOOD COUNT 4.58 10*6/uL (4.50-5.90); RED CELL DISTRI WIDTH 12.4 % (0-14.5); WHITE BLOOD COUNT 7.2 10*3/uL (4.8-10.8)
[2020-07-18 10:45] LABS: ALBUMIN 3.4 gm/dl (3.1-4.5); ALKALINE PHOSPHATASE 131 U/L (45-117); BUN 17 mg/dl (7-24); CHLORIDE 104 mmol/L (98-107); CREATININE 1.12 mg/dL (0.70-1.30); POTASSIUM 3.5 mmol/L (3.5-5.1); SGOT/AST 14 IU/L (3-35); SGPT/ALT 17 U/L (12-78); SODIUM 139 mmol/L (136-145); TOTAL PROTEIN 7.5 gm/dL (6.4-8.2)
== END | disposition home or self-care (01) ==
LOC: LAB 09:57
PROVIDERS: ATTEND Urology
DX: Z12.5 Encounter for screening for malignant neoplasm of prostate (principal); D40.0 Neoplasm of uncertain behavior of prostate; R53.83 Other fatigue

== ENCOUNTER 2020-10-31 00:03 | Inpatient (IN) | payer OTHER ==
[~2020-10-31] VITALS: Ht 172.7 cm; Wt 62.2 kg
[2020-10-31] VITALS (11 sets, daily range): BP systolic 99–118; BP diastolic 57–85
[~2020-10-31 00:03] MED LIST changes: +FUROSEMIDE40 MG PO
[2020-10-31 00:49] LABS: BASO % 0.1 % (0.0-1.0); HEMATOCRIT 39.2 % (42.0-52.0); LYMPH # 1.1 10*3/uL (1.3-4.4); LYMPH % 9.6 % (27.0-41.0); MEAN CELL VOLUME 86.7 fl (80.0-94.0); MEAN CORPUSCULAR HGB 29.2 pg (27.0-31.0); MEAN CORPUSCULAR HGB CONC 33.7 g/dl (33.0-37.0); MEAN PLATELET VOLUME 11.1 fl (9.6-12.3); MONO # 0.8 10*3/uL (0.1-1.0); MONO % 7.3 % (3.0-9.0); NEUT # 9.3 10*3/uL (2.3-7.9); NEUT % 82.6 % (47.0-73.0); PLATELET COUNT AUTOMATED 143 10*3/uL (130-400); RED BLOOD COUNT 4.52 10*6/uL (4.50-5.90); RED CELL DISTRI WIDTH 12.5 % (0-14.5); WHITE BLOOD COUNT 11.3 10*3/uL (4.8-10.8)
[2020-10-31 01:16] LABS: ALBUMIN 3.3 gm/dl (3.1-4.5); CREATININE 1.97 mg/dL (0.70-1.30); POTASSIUM 2.9 mmol/L (3.5-5.1); TOTAL PROTEIN 6.9 gm/dL (6.4-8.2)
[2020-10-31 02:29] LABS: BILIRUBIN Negative (Negative); BLOOD 1+ (Negative); CLARITY Cloudy (Clear); COLOR Dark Yellow (Yellow); GLUCOSE Negative (Negative); KETONE Trace (Negative); LEUKO ESTERASE 2+ (Negative); NITRITE Negative (Negative)
[2020-10-31 03:05] LABS: BACTERIA TRACE; WBC 16-20 wbc/hpf (0-5)
[2020-10-31 06:00] LABS: CREATININE 1.72 mg/dL (0.70-1.30); POTASSIUM 2.8 mmol/L (3.5-5.1)
[2020-10-31 06:35] LABS: BASO % 0.1 % (0.0-1.0); HEMATOCRIT 42.9 % (42.0-52.0); LYMPH # 1.3 10*3/uL (1.3-4.4); LYMPH % 11.2 % (27.0-41.0); MEAN CELL VOLUME 88.8 fl (80.0-94.0); MEAN CORPUSCULAR HGB 28.8 pg (27.0-31.0); MEAN CORPUSCULAR HGB CONC 32.4 g/dl (33.0-37.0); MEAN PLATELET VOLUME 12.1 fl (9.6-12.3); MONO # 0.6 10*3/uL (0.1-1.0); MONO % 4.8 % (3.0-9.0); NEUT # 9.7 10*3/uL (2.3-7.9); NEUT % 83.5 % (47.0-73.0); PLATELET COUNT AUTOMATED 150 10*3/uL (130-400); RED BLOOD COUNT 4.83 10*6/uL (4.50-5.90); RED CELL DISTRI WIDTH 12.7 % (0-14.5); WHITE BLOOD COUNT 11.6 10*3/uL (4.8-10.8)
[2020-10-31] MEDS ORDERED: NEURONTIN600 MG PO ×2 (09:09→10:41)
[2020-10-31] MEDS ORDERED: PROTONIX40 MG PO ×2 (09:10→10:39)
[2020-10-31] MEDS ORDERED: MORPHINE SULFAT30 M1 PO ×2 (09:10→10:42)
[2020-10-31] MEDS ORDERED: MOBIC7.5 MG PO ×2 (09:10→10:40)
[2020-10-31] MEDS ORDERED: ZESTRIL2.5 MG PO ×2 (09:11→10:40)
[2020-10-31] MEDS ORDERED: REGLAN5 MG PO ×2 (09:11→10:40)
[2020-10-31] MEDS ORDERED: AMBIEN10 M1 PO (10:42)
[2020-10-31] MEDS ORDERED: LASIX40 MG PO (10:42)
[2020-10-31 17:39] LABS: ABG BASE EXCESS 0.5 mmol/L (-2.0-2.0); ARTERIAL BLOOD GAS PH 7.397 (7.35-7.45); ARTERIAL BLOOD GAS PO2 48.7 (80-90)
[2020-11-01] VITALS: BP 105/68
[2020-11-01 06:08] LABS: ALBUMIN 2.7 gm/dl (3.1-4.5); CHLORIDE 102 mmol/L (98-107); SODIUM 134 mmol/L (136-145)
[2020-11-01 06:11] LABS: ALKALINE PHOSPHATASE 84 U/L (45-117); CREATININE 0.89 mg/dL (0.70-1.30); LDH 293 U/L (87-241); SGOT/AST 57 IU/L (3-35); SGPT/ALT 26 U/L (12-78); TOTAL PROTEIN 6.5 gm/dL (6.4-8.2)
[2020-11-01 06:16] LABS: BUN 23 mg/dl (7-24); POTASSIUM 3.9 mmol/L (3.5-5.1)
[2020-11-01 06:30] LABS: LYMPH # 0.6 10*3/uL (1.3-4.4); LYMPH % 10.8 % (27.0-41.0); MEAN CELL VOLUME 88.6 fl (80.0-94.0); MEAN CORPUSCULAR HGB 29.1 pg (27.0-31.0); MEAN CORPUSCULAR HGB CONC 32.9 g/dl (33.0-37.0); MEAN PLATELET VOLUME 12.1 fl (9.6-12.3); MONO # 0.3 10*3/uL (0.1-1.0); MONO % 5.6 % (3.0-9.0); NEUT # 4.7 10*3/uL (2.3-7.9); NEUT % 83.4 % (47.0-73.0); PLATELET COUNT AUTOMATED 115 10*3/uL (130-400); RED BLOOD COUNT 4.29 10*6/uL (4.50-5.90); RED CELL DISTRI WIDTH 12.5 % (0-14.5); WHITE BLOOD COUNT 5.6 10*3/uL (4.8-10.8)
[2020-11-01 07:43] LABS: ABG BASE EXCESS -1.4 mmol/L (-2.0-2.0); ARTERIAL BLOOD GAS PH 7.383 (7.35-7.45); ARTERIAL BLOOD GAS PO2 45.4 (80-90)
[2020-11-01 08:00] VITALS: BP 106/65
[2020-11-01 12:00] VITALS: BP 113/63
[2020-11-01 16:00] VITALS: BP 104/58
[2020-11-01 20:00] VITALS: BP 124/72
[2020-11-02] VITALS: BP 101/67
[2020-11-02 06:07] LABS: HEMATOCRIT 39.7 % (42.0-52.0); LYMPH # 0.7 10*3/uL (1.3-4.4); LYMPH % 9.6 % (27.0-41.0); MEAN CELL VOLUME 89.4 fl (80.0-94.0); MEAN CORPUSCULAR HGB 29.3 pg (27.0-31.0); MEAN CORPUSCULAR HGB CONC 32.7 g/dl (33.0-37.0); MEAN PLATELET VOLUME 12.3 fl (9.6-12.3); MONO # 0.4 10*3/uL (0.1-1.0); MONO % 6.1 % (3.0-9.0); NEUT % 83.7 % (47.0-73.0); PLATELET COUNT AUTOMATED 124 10*3/uL (130-400); RED BLOOD COUNT 4.44 10*6/uL (4.50-5.90); RED CELL DISTRI WIDTH 12.3 % (0-14.5); WHITE BLOOD COUNT 7.2 10*3/uL (4.8-10.8)
[2020-11-02 06:10] LABS: ALBUMIN 2.7 gm/dl (3.1-4.5); ALKALINE PHOSPHATASE 76 U/L (45-117); BUN 21 mg/dl (7-24); CHLORIDE 102 mmol/L (98-107); CREATININE 0.81 mg/dL (0.70-1.30); LDH 308 U/L (87-241); POTASSIUM 4.3 mmol/L (3.5-5.1); SGOT/AST 48 IU/L (3-35); SGPT/ALT 27 U/L (12-78); SODIUM 137 mmol/L (136-145); TOTAL PROTEIN 5.8 gm/dL (6.4-8.2)
[2020-11-02 07:36] LABS: ABG BASE EXCESS 3.2 mmol/L (-2.0-2.0); ARTERIAL BLOOD GAS PH 7.447 (7.35-7.45); ARTERIAL BLOOD GAS PO2 53.3 (80-90)
[2020-11-02 08:00] VITALS: BP 118/79
[2020-11-02 12:00] VITALS: BP 125/73
[2020-11-02 16:00] VITALS: BP 138/83
[2020-11-02 20:00] VITALS: BP 116/73
[2020-11-03] VITALS: BP 104/71
[2020-11-03 06:14] LABS: ALBUMIN 2.5 gm/dl (3.1-4.5); BUN 19 mg/dl (7-24); CHLORIDE 100 mmol/L (98-107); CREATININE 0.74 mg/dL (0.70-1.30); POTASSIUM 3.4 mmol/L (3.5-5.1); SGOT/AST 38 IU/L (3-35); SODIUM 138 mmol/L (136-145)
[2020-11-03 06:29] LABS: ALKALINE PHOSPHATASE 72 U/L (45-117); LDH 334 U/L (87-241); SGPT/ALT 25 U/L (12-78); TOTAL PROTEIN 5.9 gm/dL (6.4-8.2)
[2020-11-03 06:38] LABS: HEMATOCRIT 40.1 % (42.0-52.0); LYMPH # 0.8 10*3/uL (1.3-4.4); LYMPH % 15.4 % (27.0-41.0); MEAN CELL VOLUME 90.1 fl (80.0-94.0); MEAN CORPUSCULAR HGB 28.8 pg (27.0-31.0); MEAN CORPUSCULAR HGB CONC 31.9 g/dl (33.0-37.0); MEAN PLATELET VOLUME 11.9 fl (9.6-12.3); MONO # 0.6 10*3/uL (0.1-1.0); MONO % 11.1 % (3.0-9.0); NEUT # 3.9 10*3/uL (2.3-7.9); NEUT % 73.1 % (47.0-73.0); PLATELET COUNT AUTOMATED 130 10*3/uL (130-400); RED BLOOD COUNT 4.45 10*6/uL (4.50-5.90); RED CELL DISTRI WIDTH 12.3 % (0-14.5); WHITE BLOOD COUNT 5.4 10*3/uL (4.8-10.8)
[2020-11-03 07:29] LABS: ABG BASE EXCESS 7.1 mmol/L (-2.0-2.0); ARTERIAL BLOOD GAS PH 7.446 (7.35-7.45); ARTERIAL BLOOD GAS PO2 51.9 (80-90)
[2020-11-03 08:00] VITALS: BP 140/83
[2020-11-03 12:00] VITALS: BP 109/69
[2020-11-03 16:00] VITALS: BP 102/64
[2020-11-03 20:00] VITALS: BP 115/61
[2020-11-04] VITALS: BP 113/73
[2020-11-04 06:02] LABS: ALBUMIN 2.6 gm/dl (3.1-4.5); BUN 15 mg/dl (7-24); CHLORIDE 100 mmol/L (98-107); POTASSIUM 3.8 mmol/L (3.5-5.1); SODIUM 138 mmol/L (136-145)
[2020-11-04 06:06] LABS: ALKALINE PHOSPHATASE 73 U/L (45-117); CREATININE 0.69 mg/dL (0.70-1.30); SGOT/AST 34 IU/L (3-35); SGPT/ALT 29 U/L (12-78); TOTAL PROTEIN 5.9 gm/dL (6.4-8.2)
[2020-11-04 07:52] LABS: ABG BASE EXCESS 7.8 mmol/L (-2.0-2.0); ARTERIAL BLOOD GAS PH 7.486 (7.35-7.45); ARTERIAL BLOOD GAS PO2 61.1 (80-90)
[2020-11-04 08:00] VITALS: BP 148/80
[2020-11-04 12:00] VITALS: BP 108/72
[2020-11-04 16:00] VITALS: BP 116/66
[2020-11-04 20:00] VITALS: BP 135/77
[2020-11-05] VITALS: BP 133/73
[2020-11-05 06:50] LABS: ALBUMIN 2.4 gm/dl (3.1-4.5); ALKALINE PHOSPHATASE 69 U/L (45-117); BUN 16 mg/dl (7-24); CHLORIDE 102 mmol/L (98-107); SGPT/ALT 31 U/L (12-78); SODIUM 140 mmol/L (136-145); TOTAL PROTEIN 5.7 gm/dL (6.4-8.2)
[2020-11-05 06:51] LABS: CREATININE 0.62 mg/dL (0.70-1.30); SGOT/AST 31 IU/L (3-35)
[2020-11-05 07:00] LABS: EOS % 0.2 % (1.0-4.0); HEMATOCRIT 38.9 % (42.0-52.0); LYMPH # 0.7 10*3/uL (1.3-4.4); LYMPH % 12.6 % (27.0-41.0); MEAN CELL VOLUME 87.8 fl (80.0-94.0); MEAN CORPUSCULAR HGB 28.9 pg (27.0-31.0); MEAN CORPUSCULAR HGB CONC 32.9 g/dl (33.0-37.0); MEAN PLATELET VOLUME 11.3 fl (9.6-12.3); MONO # 0.6 10*3/uL (0.1-1.0); MONO % 11.8 % (3.0-9.0); NEUT # 3.9 10*3/uL (2.3-7.9); NEUT % 74.6 % (47.0-73.0); PLATELET COUNT AUTOMATED 141 10*3/uL (130-400); RED BLOOD COUNT 4.43 10*6/uL (4.50-5.90); RED CELL DISTRI WIDTH 11.9 % (0-14.5); WHITE BLOOD COUNT 5.2 10*3/uL (4.8-10.8)
[2020-11-05 07:42] LABS: ABG BASE EXCESS 8.3 mmol/L (-2.0-2.0); ARTERIAL BLOOD GAS PH 7.492 (7.35-7.45); ARTERIAL BLOOD GAS PO2 56.6 (80-90)
[2020-11-05 07:59] VITALS: BP 126/79
[2020-11-05 12:00] VITALS: BP 105/64
[2020-11-05 16:00] VITALS: BP 105/65
[2020-11-05 20:00] VITALS: BP 113/67
[2020-11-06 00:09] VITALS: BP 116/59
[2020-11-06 06:08] LABS: ALBUMIN 2.7 gm/dl (3.1-4.5); BUN 19 mg/dl (7-24); CHLORIDE 102 mmol/L (98-107); CREATININE 0.79 mg/dL (0.70-1.30); POTASSIUM 3.6 mmol/L (3.5-5.1); SGOT/AST 28 IU/L (3-35); SGPT/ALT 39 U/L (12-78); SODIUM 140 mmol/L (136-145); TOTAL PROTEIN 6.2 gm/dL (6.4-8.2)
[2020-11-06 06:09] LABS: ALKALINE PHOSPHATASE 76 U/L (45-117)
[2020-11-06 06:28] LABS: EOS % 0.3 % (1.0-4.0); HEMATOCRIT 43.4 % (42.0-52.0); LYMPH # 0.8 10*3/uL (1.3-4.4); LYMPH % 11.2 % (27.0-41.0); MEAN CELL VOLUME 89.9 fl (80.0-94.0); MEAN CORPUSCULAR HGB CONC 32.3 g/dl (33.0-37.0); MEAN PLATELET VOLUME 11.7 fl (9.6-12.3); MONO # 0.6 10*3/uL (0.1-1.0); MONO % 8.1 % (3.0-9.0); NEUT # 5.9 10*3/uL (2.3-7.9); NEUT % 79.6 % (47.0-73.0); PLATELET COUNT AUTOMATED 155 10*3/uL (130-400); RED BLOOD COUNT 4.83 10*6/uL (4.50-5.90); RED CELL DISTRI WIDTH 12.1 % (0-14.5); WHITE BLOOD COUNT 7.4 10*3/uL (4.8-10.8)
[2020-11-06 08:00] VITALS: BP 155/83
[2020-11-06 12:00] VITALS: BP 121/78
[2020-11-06 16:00] VITALS: BP 115/81
[2020-11-06 20:00] VITALS: BP 131/75
[2020-11-07] VITALS: BP 170/92
[2020-11-07 06:36] LABS: BASO % 0.1 % (0.0-1.0); CREATININE 0.67 mg/dL (0.70-1.30); EOS # 0.1 10*3/uL (0.0-0.4); EOS % 0.7 % (1.0-4.0); HEMATOCRIT 40.8 % (42.0-52.0); LYMPH # 0.9 10*3/uL (1.3-4.4); LYMPH % 8.7 % (27.0-41.0); MEAN CELL VOLUME 88.1 fl (80.0-94.0); MEAN CORPUSCULAR HGB 29.2 pg (27.0-31.0); MEAN CORPUSCULAR HGB CONC 33.1 g/dl (33.0-37.0); MEAN PLATELET VOLUME 11.5 fl (9.6-12.3); MONO # 0.5 10*3/uL (0.1-1.0); MONO % 4.4 % (3.0-9.0); NEUT # 8.7 10*3/uL (2.3-7.9); NEUT % 84.6 % (47.0-73.0); PLATELET COUNT AUTOMATED 171 10*3/uL (130-400); RED BLOOD COUNT 4.63 10*6/uL (4.50-5.90); RED CELL DISTRI WIDTH 12.1 % (0-14.5); WHITE BLOOD COUNT 10.3 10*3/uL (4.8-10.8)
[2020-11-07 08:00] VITALS: BP 120/78
[2020-11-07 11:51] VITALS: BP 112/78
[2020-11-07 13:19] LABS: ABG BASE EXCESS 6.7 mmol/L (-2.0-2.0); ARTERIAL BLOOD GAS PH 7.531 (7.35-7.45); ARTERIAL BLOOD GAS PO2 225.8 (80-90)
[2020-11-07 15:50] VITALS: BP 124/72
[2020-11-07 20:00] VITALS: BP 117/70
[2020-11-08] VITALS: BP 120/66
[2020-11-08 06:00] LABS: HEMATOCRIT 42.7 % (42.0-52.0); MEAN CELL VOLUME 89.5 fl (80.0-94.0); MEAN CORPUSCULAR HGB 29.1 pg (27.0-31.0); MEAN CORPUSCULAR HGB CONC 32.6 g/dl (33.0-37.0); MEAN PLATELET VOLUME 11.1 fl (9.6-12.3); PLATELET COUNT AUTOMATED 200 10*3/uL (130-400); RED BLOOD COUNT 4.77 10*6/uL (4.50-5.90); RED CELL DISTRI WIDTH 12.2 % (0-14.5); WHITE BLOOD COUNT 12.6 10*3/uL (4.8-10.8)
[2020-11-08 06:17] LABS: CREATININE 0.65 mg/dL (0.70-1.30)
[2020-11-08 06:59] LABS: PLATELET SUFFICIENCY NORMAL (NORMAL); SCHISTOCYTES FEW; TOTAL CELLS COUNTED 100 #CELLS
[2020-11-08 08:00] VITALS: BP 120/80
[2020-11-08 08:44] LABS: ABG BASE EXCESS 7.8 mmol/L (-2.0-2.0); ARTERIAL BLOOD GAS PH 7.519 (7.35-7.45); ARTERIAL BLOOD GAS PO2 50.2 (80-90)
[2020-11-08 12:00] VITALS: BP 121/80
[2020-11-08 13:39] VITALS: BP 100/70
[2020-11-08 16:00] VITALS: BP 92/65
[2020-11-08 17:08] LABS: ABG BASE EXCESS 5.4 mmol/L (-2.0-2.0); ARTERIAL BLOOD GAS PH 7.489 (7.35-7.45)
[2020-11-08 20:00] VITALS: BP 97/64
[2020-11-09] VITALS: BP 103/60
[2020-11-09 04:00] VITALS: BP 118/73
[2020-11-09 05:51] LABS: ALBUMIN 2.3 gm/dl (3.1-4.5); ALKALINE PHOSPHATASE 78 U/L (45-117); BUN 22 mg/dl (7-24); CHLORIDE 103 mmol/L (98-107); CREATININE 0.73 mg/dL (0.70-1.30); POTASSIUM 4.4 mmol/L (3.5-5.1); SGOT/AST 21 IU/L (3-35); SGPT/ALT 40 U/L (12-78); SODIUM 136 mmol/L (136-145); TOTAL PROTEIN 6.2 gm/dL (6.4-8.2)
[2020-11-09 06:09] LABS: HEMATOCRIT 41.9 % (42.0-52.0); MEAN CELL VOLUME 91.1 fl (80.0-94.0); MEAN CORPUSCULAR HGB 28.5 pg (27.0-31.0); MEAN CORPUSCULAR HGB CONC 31.3 g/dl (33.0-37.0); MEAN PLATELET VOLUME 11.1 fl (9.6-12.3); PLATELET COUNT AUTOMATED 182 10*3/uL (130-400); RED CELL DISTRI WIDTH 12.3 % (0-14.5)
[2020-11-09 07:09] LABS: PLATELET SUFFICIENCY NORMAL (NORMAL); TOTAL CELLS COUNTED 100 #CELLS
[2020-11-09 07:21] LABS: ABG BASE EXCESS 6.6 mmol/L (-2.0-2.0); ARTERIAL BLOOD GAS PH 7.49 (7.35-7.45); ARTERIAL BLOOD GAS PO2 49.6 (80-90)
[2020-11-09 08:00] VITALS: BP 122/89
[2020-11-09 12:00] VITALS: BP 110/78
[2020-11-09 16:00] VITALS: BP 105/72
[2020-11-09 20:00] VITALS: BP 118/90
[2020-11-10] VITALS: BP 93/67
[2020-11-10 04:03] VITALS: BP 108/68
[2020-11-10 05:30] LABS: BUN 22 mg/dl (7-24); CHLORIDE 105 mmol/L (98-107); CREATININE 0.73 mg/dL (0.70-1.30); POTASSIUM 4.1 mmol/L (3.5-5.1); SODIUM 137 mmol/L (136-145)
[2020-11-10 05:31] LABS: LDH 237 U/L (87-241)
[2020-11-10 06:13] LABS: HEMATOCRIT 37.4 % (42.0-52.0); MEAN CORPUSCULAR HGB 29.3 pg (27.0-31.0); MEAN CORPUSCULAR HGB CONC 32.9 g/dl (33.0-37.0); MEAN PLATELET VOLUME 11.6 fl (9.6-12.3); PLATELET COUNT AUTOMATED 191 10*3/uL (130-400); RED CELL DISTRI WIDTH 12.4 % (0-14.5)
[2020-11-10 07:27] LABS: PLATELET SUFFICIENCY NORMAL (NORMAL); TOTAL CELLS COUNTED 100 #CELLS
[2020-11-10 07:56] LABS: ARTERIAL BLOOD GAS PH 7.48 (7.35-7.45)
[2020-11-10 08:00] VITALS: BP 144/81
[2020-11-10 12:00] VITALS: BP 123/74
[2020-11-10 16:00] VITALS: BP 112/59
[2020-11-10 20:00] VITALS: BP 119/63
[2020-11-11] VITALS: BP 127/73
[2020-11-11 04:00] VITALS: BP 123/80
[2020-11-11 06:06] LABS: VANCOMYCIN TROUGH 13.4 ug/mL (10-20)
[2020-11-11 06:08] LABS: BASO % 0.1 % (0.0-1.0); EOS % 0.2 % (1.0-4.0); HEMATOCRIT 39.9 % (42.0-52.0); LYMPH # 0.5 10*3/uL (1.3-4.4); LYMPH % 3.6 % (27.0-41.0); MEAN CELL VOLUME 89.7 fl (80.0-94.0); MEAN CORPUSCULAR HGB CONC 32.3 g/dl (33.0-37.0); MEAN PLATELET VOLUME 11.4 fl (9.6-12.3); MONO # 0.6 10*3/uL (0.1-1.0); MONO % 4.6 % (3.0-9.0); NEUT # 12.2 10*3/uL (2.3-7.9); NEUT % 89.7 % (47.0-73.0); PLATELET COUNT AUTOMATED 174 10*3/uL (130-400); RED BLOOD COUNT 4.45 10*6/uL (4.50-5.90); RED CELL DISTRI WIDTH 12.5 % (0-14.5); WHITE BLOOD COUNT 13.7 10*3/uL (4.8-10.8)
[2020-11-11 06:48] LABS: ALBUMIN 2.2 gm/dl (3.1-4.5); ALKALINE PHOSPHATASE 90 U/L (45-117); BUN 23 mg/dl (7-24); CHLORIDE 105 mmol/L (98-107); CREATININE 0.76 mg/dL (0.70-1.30); POTASSIUM 4.1 mmol/L (3.5-5.1); SGOT/AST 30 IU/L (3-35); SGPT/ALT 63 U/L (12-78); SODIUM 140 mmol/L (136-145); TOTAL PROTEIN 6.2 gm/dL (6.4-8.2)
[2020-11-11 08:00] VITALS: BP 137/83
[2020-11-11 08:07] LABS: ABG BASE EXCESS 2.2 mmol/L (-2.0-2.0); ARTERIAL BLOOD GAS PH 7.471 (7.35-7.45); ARTERIAL BLOOD GAS PO2 59.9 (80-90)
[2020-11-11 12:00] VITALS: BP 132/80
[2020-11-11 16:00] VITALS: BP 100/66
[2020-11-11 20:00] VITALS: BP 103/65
[2020-11-12] VITALS: BP 111/66
[2020-11-12 04:00] VITALS: BP 124/77
[2020-11-12 05:16] LABS: ALBUMIN 2.2 gm/dl (3.1-4.5); ALKALINE PHOSPHATASE 90 U/L (45-117); BUN 23 mg/dl (7-24); CHLORIDE 103 mmol/L (98-107); CREATININE 0.89 mg/dL (0.70-1.30); LDH 228 U/L (87-241); POTASSIUM 4.4 mmol/L (3.5-5.1); SGOT/AST 35 IU/L (3-35); SGPT/ALT 93 U/L (12-78); SODIUM 138 mmol/L (136-145)
[2020-11-12 06:26] LABS: BASO % 0.1 % (0.0-1.0); EOS % 0.2 % (1.0-4.0); HEMATOCRIT 39.3 % (42.0-52.0); LYMPH # 0.8 10*3/uL (1.3-4.4); LYMPH % 4.2 % (27.0-41.0); MEAN CELL VOLUME 89.7 fl (80.0-94.0); MEAN CORPUSCULAR HGB 29.2 pg (27.0-31.0); MEAN CORPUSCULAR HGB CONC 32.6 g/dl (33.0-37.0); MEAN PLATELET VOLUME 11.8 fl (9.6-12.3); MONO # 1.4 10*3/uL (0.1-1.0); MONO % 7.4 % (3.0-9.0); NEUT % 86.5 % (47.0-73.0); PLATELET COUNT AUTOMATED 167 10*3/uL (130-400); RED BLOOD COUNT 4.38 10*6/uL (4.50-5.90); RED CELL DISTRI WIDTH 12.3 % (0-14.5); WHITE BLOOD COUNT 18.5 10*3/uL (4.8-10.8)
[2020-11-12 08:00] VITALS: BP 130/77
[2020-11-12 08:08] LABS: ABG BASE EXCESS 4.4 mmol/L (-2.0-2.0); ARTERIAL BLOOD GAS PH 7.475 (7.35-7.45); ARTERIAL BLOOD GAS PO2 63.8 (80-90)
[2020-11-12 11:49] VITALS: BP 98/63
[2020-11-12 15:35] VITALS: BP 76/38
[2020-11-12 20:00] VITALS: BP 91/64
[2020-11-13] VITALS (7 sets, daily range): BP systolic 84–114; BP diastolic 49–79
[2020-11-13 06:07] LABS: HEMATOCRIT 39.1 % (42.0-52.0); MEAN CELL VOLUME 89.3 fl (80.0-94.0); MEAN CORPUSCULAR HGB 28.8 pg (27.0-31.0); MEAN CORPUSCULAR HGB CONC 32.2 g/dl (33.0-37.0); MEAN PLATELET VOLUME 11.1 fl (9.6-12.3); PLATELET COUNT AUTOMATED 150 10*3/uL (130-400); RED BLOOD COUNT 4.38 10*6/uL (4.50-5.90); RED CELL DISTRI WIDTH 12.3 % (0-14.5); WHITE BLOOD COUNT 12.8 10*3/uL (4.8-10.8)
[2020-11-13 06:23] LABS: ALBUMIN 1.9 gm/dl (3.1-4.5); ALKALINE PHOSPHATASE 92 U/L (45-117); BUN 25 mg/dl (7-24); CHLORIDE 105 mmol/L (98-107); LDH 206 U/L (87-241); POTASSIUM 4.1 mmol/L (3.5-5.1); SGOT/AST 34 IU/L (3-35); SGPT/ALT 98 U/L (12-78); SODIUM 140 mmol/L (136-145); TOTAL PROTEIN 5.4 gm/dL (6.4-8.2)
[2020-11-13 06:39] LABS: PLATELET SUFFICIENCY NORMAL (NORMAL); TOTAL CELLS COUNTED 100 #CELLS
[2020-11-13 08:11] LABS: ARTERIAL BLOOD GAS PH 7.473 (7.35-7.45)
[2020-11-14] VITALS: BP 100/50
[2020-11-14 04:00] VITALS: BP 120/74
[2020-11-14 06:00] LABS: ALKALINE PHOSPHATASE 94 U/L (45-117); BUN 26 mg/dl (7-24); CHLORIDE 103 mmol/L (98-107); CREATININE 0.71 mg/dL (0.70-1.30); POTASSIUM 4.4 mmol/L (3.5-5.1); SGOT/AST 19 IU/L (3-35); SGPT/ALT 71 U/L (12-78); SODIUM 137 mmol/L (136-145); TOTAL PROTEIN 5.6 gm/dL (6.4-8.2)
[2020-11-14 06:33] LABS: HEMATOCRIT 39.2 % (42.0-52.0); MEAN CELL VOLUME 89.9 fl (80.0-94.0); MEAN CORPUSCULAR HGB 28.9 pg (27.0-31.0); MEAN CORPUSCULAR HGB CONC 32.1 g/dl (33.0-37.0); MEAN PLATELET VOLUME 11.3 fl (9.6-12.3); PLATELET COUNT AUTOMATED 136 10*3/uL (130-400); RED BLOOD COUNT 4.36 10*6/uL (4.50-5.90); RED CELL DISTRI WIDTH 12.3 % (0-14.5); WHITE BLOOD COUNT 13.6 10*3/uL (4.8-10.8)
[2020-11-14 07:08] LABS: PLATELET SUFFICIENCY NORMAL (NORMAL); TOTAL CELLS COUNTED 100 #CELLS
[2020-11-14 08:00] VITALS: BP 90/60
[2020-11-14 12:00] VITALS: BP 97/58
[2020-11-14] MEDS ORDERED: MORPHINE SULFAT30 M9 PO (16:06)
[2020-11-14 17:15] VITALS: BP 90/54
[2020-11-14 20:00] VITALS: BP 97/56
[2020-11-15] VITALS (7 sets, daily range): BP systolic 86–115; BP diastolic 56–65
[2020-11-15 04:49] LABS: BASO % 0.2 % (0.0-1.0); EOS # 0.1 10*3/uL (0.0-0.4); EOS % 0.6 % (1.0-4.0); LYMPH # 0.9 10*3/uL (1.3-4.4); LYMPH % 6.5 % (27.0-41.0); MEAN CELL VOLUME 91.3 fl (80.0-94.0); MEAN CORPUSCULAR HGB CONC 31.8 g/dl (33.0-37.0); MONO # 0.7 10*3/uL (0.1-1.0); NEUT # 12.1 10*3/uL (2.3-7.9); NEUT % 86.1 % (47.0-73.0); PLATELET COUNT AUTOMATED 138 10*3/uL (130-400); RED BLOOD COUNT 4.27 10*6/uL (4.50-5.90); RED CELL DISTRI WIDTH 12.5 % (0-14.5); WHITE BLOOD COUNT 14.1 10*3/uL (4.8-10.8)
[2020-11-15 04:55] LABS: CREATININE 0.79 mg/dL (0.70-1.30)
[2020-11-15 06:54] LABS: ALKALINE PHOSPHATASE 104 U/L (45-117); BUN 24 mg/dl (7-24); CHLORIDE 104 mmol/L (98-107); CREATININE 0.75 mg/dL (0.70-1.30); POTASSIUM 4.8 mmol/L (3.5-5.1); SGOT/AST 19 IU/L (3-35); SGPT/ALT 55 U/L (12-78); SODIUM 136 mmol/L (136-145); TOTAL PROTEIN 5.7 gm/dL (6.4-8.2)
[2020-11-15 08:45] LABS: ABG BASE EXCESS 3.7 mmol/L (-2.0-2.0); ARTERIAL BLOOD GAS PH 7.453 (7.35-7.45); ARTERIAL BLOOD GAS PO2 67.6 (80-90)
[2020-11-16] VITALS (7 sets, daily range): BP systolic 90–117; BP diastolic 50–76
[2020-11-16 05:42] LABS: ALBUMIN 1.8 gm/dl (3.1-4.5); ALKALINE PHOSPHATASE 83 U/L (45-117); BUN 21 mg/dl (7-24); CHLORIDE 104 mmol/L (98-107); CREATININE 0.65 mg/dL (0.70-1.30); LDH 179 U/L (87-241); POTASSIUM 4.3 mmol/L (3.5-5.1); SGOT/AST 17 IU/L (3-35); SGPT/ALT 46 U/L (12-78); SODIUM 136 mmol/L (136-145); TOTAL PROTEIN 5.5 gm/dL (6.4-8.2)
[2020-11-16 06:07] LABS: HEMATOCRIT 34.8 % (42.0-52.0); MEAN CELL VOLUME 89.2 fl (80.0-94.0); MEAN CORPUSCULAR HGB 28.7 pg (27.0-31.0); MEAN CORPUSCULAR HGB CONC 32.2 g/dl (33.0-37.0); MEAN PLATELET VOLUME 11.5 fl (9.6-12.3); PLATELET COUNT AUTOMATED 145 10*3/uL (130-400); RED CELL DISTRI WIDTH 12.3 % (0-14.5)
[2020-11-16 07:22] LABS: PLATELET SUFFICIENCY NORMAL (NORMAL); TOTAL CELLS COUNTED 100 #CELLS
[2020-11-17] VITALS: BP 108/71
[2020-11-17 04:00] VITALS: BP 101/65
[2020-11-17 04:45] LABS: ALBUMIN 1.9 gm/dl (3.1-4.5); ALKALINE PHOSPHATASE 93 U/L (45-117); BUN 18 mg/dl (7-24); CHLORIDE 104 mmol/L (98-107); CREATININE 0.68 mg/dL (0.70-1.30); LDH 189 U/L (87-241); POTASSIUM 4.6 mmol/L (3.5-5.1); SGOT/AST 21 IU/L (3-35); SGPT/ALT 50 U/L (12-78); SODIUM 137 mmol/L (136-145)
[2020-11-17 06:03] LABS: BASO % 0.3 % (0.0-1.0); EOS # 0.1 10*3/uL (0.0-0.4); EOS % 1.3 % (1.0-4.0); HEMATOCRIT 37.2 % (42.0-52.0); LYMPH # 1.2 10*3/uL (1.3-4.4); LYMPH % 11.4 % (27.0-41.0); MEAN CELL VOLUME 90.5 fl (80.0-94.0); MEAN CORPUSCULAR HGB 29.2 pg (27.0-31.0); MEAN CORPUSCULAR HGB CONC 32.3 g/dl (33.0-37.0); MONO # 0.9 10*3/uL (0.1-1.0); MONO % 8.1 % (3.0-9.0); NEUT # 8.2 10*3/uL (2.3-7.9); NEUT % 77.4 % (47.0-73.0); PLATELET COUNT AUTOMATED 143 10*3/uL (130-400); RED BLOOD COUNT 4.11 10*6/uL (4.50-5.90); RED CELL DISTRI WIDTH 12.3 % (0-14.5); WHITE BLOOD COUNT 10.6 10*3/uL (4.8-10.8)
[2020-11-17 08:00] VITALS: BP 94/65
[2020-11-17 12:00] VITALS: BP 102/62
[2020-11-17 16:00] VITALS: BP 94/64
[2020-11-17 20:00] VITALS: BP 95/68
[2020-11-18] VITALS (7 sets, daily range): BP systolic 91–116; BP diastolic 51–85
[2020-11-18 05:29] LABS: ALBUMIN 1.9 gm/dl (3.1-4.5); ALKALINE PHOSPHATASE 97 U/L (45-117); BUN 17 mg/dl (7-24); CHLORIDE 103 mmol/L (98-107); CREATININE 0.68 mg/dL (0.70-1.30); LDH 184 U/L (87-241); POTASSIUM 4.4 mmol/L (3.5-5.1); SGOT/AST 20 IU/L (3-35); SGPT/ALT 51 U/L (12-78); SODIUM 137 mmol/L (136-145); TOTAL PROTEIN 6.1 gm/dL (6.4-8.2)
[2020-11-19] VITALS: BP 93/62
[2020-11-19 04:00] VITALS: BP 98/62
[2020-11-19 06:14] LABS: BASO % 0.2 % (0.0-1.0); EOS # 0.2 10*3/uL (0.0-0.4); EOS % 1.8 % (1.0-4.0); HEMATOCRIT 34.9 % (42.0-52.0); LYMPH # 1.3 10*3/uL (1.3-4.4); LYMPH % 15.7 % (27.0-41.0); MEAN CELL VOLUME 90.2 fl (80.0-94.0); MEAN CORPUSCULAR HGB 28.7 pg (27.0-31.0); MEAN CORPUSCULAR HGB CONC 31.8 g/dl (33.0-37.0); MEAN PLATELET VOLUME 11.2 fl (9.6-12.3); MONO # 0.6 10*3/uL (0.1-1.0); MONO % 6.9 % (3.0-9.0); NEUT # 6.1 10*3/uL (2.3-7.9); NEUT % 73.7 % (47.0-73.0); RED BLOOD COUNT 3.87 10*6/uL (4.50-5.90); RED CELL DISTRI WIDTH 12.5 % (0-14.5); WHITE BLOOD COUNT 8.2 10*3/uL (4.8-10.8)
[2020-11-19 07:46] LABS: PLATELET COUNT AUTOMATED 96 10*3/uL (130-400)
[2020-11-19 08:00] VITALS: BP 84/63
[2020-11-19 12:00] VITALS: BP 84/50
[2020-11-19 16:00] VITALS: BP 82/62
== END 2020-11-19 18:06 | disposition home health service (06) | DRG 177 ==
LOC: ED 00:03 → 4E 04:11 → EDHOLD 04:11 → 4E 07:21 → ICCU 11-08 13:37
PROVIDERS: Emergency Medicine; Internal Medicine; Internal Medicine Critical Care Medicine; ADMIT Internal Medicine; ATTEND Internal Medicine
PROC: XW033E5 Introduction of Remdesivir Anti-infective into Peripheral Vein, Percutaneous Approach, New Technology Group 5 (ICD-10-PCS; principal; 2020-11-01)
PROC: 5A0945A Assistance with Respiratory Ventilation, 24-96 Consecutive Hours, High Flow/Velocity Cannula (ICD-10-PCS; 2020-11-04)
PROC: 5A0935A Assistance with Respiratory Ventilation, Less than 24 Consecutive Hours, High Flow/Velocity Cannula (ICD-10-PCS; 2020-11-07)
PROC: 5A09357 Assistance with Respiratory Ventilation, Less than 24 Consecutive Hours, Continuous Positive Airway Pressure (ICD-10-PCS; 2020-11-07)
PROC: 5A09357 Assistance with Respiratory Ventilation, Less than 24 Consecutive Hours, Continuous Positive Airway Pressure (ICD-10-PCS; 2020-11-08)
PROC: 5A0935A Assistance with Respiratory Ventilation, Less than 24 Consecutive Hours, High Flow/Velocity Cannula (ICD-10-PCS; 2020-11-09)
PROC: 5A09357 Assistance with Respiratory Ventilation, Less than 24 Consecutive Hours, Continuous Positive Airway Pressure (ICD-10-PCS; 2020-11-09)
PROC: 5A09357 Assistance with Respiratory Ventilation, Less than 24 Consecutive Hours, Continuous Positive Airway Pressure (ICD-10-PCS; 2020-11-11)
PROC: 5A09357 Assistance with Respiratory Ventilation, Less than 24 Consecutive Hours, Continuous Positive Airway Pressure (ICD-10-PCS; 2020-11-12)
PROC: 5A09357 Assistance with Respiratory Ventilation, Less than 24 Consecutive Hours, Continuous Positive Airway Pressure (ICD-10-PCS; 2020-11-13)
PROC: 5A09357 Assistance with Respiratory Ventilation, Less than 24 Consecutive Hours, Continuous Positive Airway Pressure (ICD-10-PCS; 2020-11-14)
PROC: 5A09357 Assistance with Respiratory Ventilation, Less than 24 Consecutive Hours, Continuous Positive Airway Pressure (ICD-10-PCS; 2020-11-15)
PROC: 5A0945A Assistance with Respiratory Ventilation, 24-96 Consecutive Hours, High Flow/Velocity Cannula (ICD-10-PCS; 2020-11-16)
PROC: 5A09357 Assistance with Respiratory Ventilation, Less than 24 Consecutive Hours, Continuous Positive Airway Pressure (ICD-10-PCS; 2020-11-16)
DX: U07.1 COVID-19 (principal); J12.82 Pneumonia due to coronavirus disease 2019; G93.41 Metabolic encephalopathy; E43 Unspecified severe protein-calorie malnutrition; J96.21 Acute and chronic respiratory failure with hypoxia; J15.9 Unspecified bacterial pneumonia; N39.0 Urinary tract infection, site not specified; E87.1 Hypo-osmolality and hyponatremia; Z16.12 Extended spectrum beta lactamase (ESBL) resistance; B37.2 Candidiasis of skin and nail; I10 Essential (primary) hypertension; K59.09 Other constipation; I95.9 Hypotension, unspecified; F51.01 Primary insomnia; K21.00 Gastro-esophageal reflux disease with esophagitis, without bleeding; G62.9 Polyneuropathy, unspecified; E87.6 Hypokalemia; J43.2 Centrilobular emphysema; K31.84 Gastroparesis; M15.9 Polyosteoarthritis, unspecified; G89.29 Other chronic pain; B96.20 Unspecified Escherichia coli [E. coli] as the cause of diseases classified elsewhere; Z96.641 Presence of right artificial hip joint; E86.0 Dehydration; F02.80 Dementia in other diseases classified elsewhere, unspecified severity, without behavioral disturbance, psychotic disturbance, mood disturbance, and anxiety; G30.1 Alzheimer's disease with late onset; F17.210 Nicotine dependence, cigarettes, uncomplicated; D72.810 Lymphocytopenia; M54.5 Low back pain; Z88.2 Allergy status to sulfonamides; Z68.22 Body mass index [BMI] 22.0-22.9, adult; N18.30 Chronic kidney disease, stage 3 unspecified

== ENCOUNTER → 2021-10-19 | Outpatient (CLI) | payer OTHER ==
[~2021-10-19] MED LIST changes: +LASIX40 MG PO; +MOBIC7.5 MG PO; +MORPHINE SULFAT30 M1 PO; +MORPHINE SULFAT30 M9 PO; +NEURONTIN600 MG PO; +PROTONIX40 MG PO; +REGLAN5 MG PO; +ZESTRIL2.5 MG PO
[2021-10-19 12:46] LABS: BASO % 0.3 % (0.0-1.0); EOS # 0.2 10*3/uL (0.0-0.4); EOS % 2.7 % (1.0-4.0); HEMATOCRIT 40.7 % (42.0-52.0); LYMPH % 21.9 % (27.0-41.0); MEAN CELL VOLUME 89.3 fl (80.0-94.0); MEAN CORPUSCULAR HGB 29.2 pg (27.0-31.0); MEAN CORPUSCULAR HGB CONC 32.7 g/dl (33.0-37.0); MEAN PLATELET VOLUME 9.9 fl (9.6-12.3); MONO # 0.7 10*3/uL (0.1-1.0); MONO % 7.4 % (3.0-9.0); NEUT % 67.4 % (47.0-73.0); PLATELET COUNT AUTOMATED 174 10*3/uL (130-400); RED BLOOD COUNT 4.56 10*6/uL (4.50-5.90); RED CELL DISTRI WIDTH 12.4 % (0-14.5); WHITE BLOOD COUNT 8.9 10*3/uL (4.8-10.8)
[2021-10-19 13:10] LABS: BUN 14 mg/dl (7-24); CHLORIDE 105 mmol/L (98-107); CHOLESTEROL 177 mg/dL (<200); SGOT/AST 23 IU/L (3-35); SGPT/ALT 20 U/L (12-78); SODIUM 141 mmol/L (136-145); T3 UPTAKE 34 % (31-39); TOTAL PROTEIN 6.9 gm/dL (6.4-8.2); TRIGLYCERIDES 130 mg/dl (<150)
[2021-10-19 13:14] LABS: ALKALINE PHOSPHATASE 184 U/L (45-117); FREE T4 0.97 ng/dl (0.76-1.46); LDL CHOLESTEROL 96 mg/dL (9-159)
[2021-10-19 13:35] LABS: VITAMIN D, 25-HYDROXY 25.8 ng/mL (30-100)
== END | disposition home or self-care (01) ==
LOC: LAB 12:24
PROVIDERS: ATTEND Internal Medicine
DX: I10 Essential (primary) hypertension (principal); E03.9 Hypothyroidism, unspecified; Z13.89 Encounter for screening for other disorder; Z13.29 Encounter for screening for other suspected endocrine disorder; E55.9 Vitamin D deficiency, unspecified; Z13.0 Encounter for screening for diseases of the blood and blood-forming organs and certain disorders involving the immune mechanism; Z13.6 Encounter for screening for cardiovascular disorders; Z12.5 Encounter for screening for malignant neoplasm of prostate; Z13.1 Encounter for screening for diabetes mellitus; Z13.21 Encounter for screening for nutritional disorder; Z13.220 Encounter for screening for lipoid disorders; Z13.228 Encounter for screening for other metabolic disorders; Z13.9 Encounter for screening, unspecified

== ENCOUNTER → 2022-08-02 | Outpatient (CLI) | payer OTHER ==
[2022-08-02 16:01] LABS: BASO # 0.1 10*3/uL (0.0-0.1); BASO % 0.9 % (0.0-1.0); EOS # 0.2 10*3/uL (0.0-0.4); EOS % 2.2 % (1.0-4.0); HEMATOCRIT 40.4 % (42.0-52.0); LYMPH # 2.2 10*3/uL (1.3-4.4); LYMPH % 27.3 % (27.0-41.0); MEAN CORPUSCULAR HGB 29.7 pg (27.0-31.0); MEAN CORPUSCULAR HGB CONC 33.4 g/dl (33.0-37.0); MEAN PLATELET VOLUME 10.5 fl (9.6-12.3); MONO # 0.7 10*3/uL (0.1-1.0); MONO % 7.9 % (3.0-9.0); NEUT % 61.2 % (47.0-73.0); PLATELET COUNT AUTOMATED 192 10*3/uL (130-400); RED BLOOD COUNT 4.54 10*6/uL (4.50-5.90); RED CELL DISTRI WIDTH 12.7 % (0-14.5); WHITE BLOOD COUNT 8.2 10*3/uL (4.8-10.8)
[2022-08-02 16:32] LABS: ALKALINE PHOSPHATASE 138 U/L (46-116); BUN 8 mg/dl (9-23); CHLORIDE 102 mmol/L (98-107); CHOLESTEROL 170 mg/dL (<200); FREE T4 1.01 ng/dl (0.89-1.76); LDL CHOLESTEROL 88 mg/dL (9-159); POTASSIUM 4.1 mmol/L (3.4-5.1); SGPT/ALT 12 U/L (10-49); THYROID STIM HORMONE (HS) 2.894 uIU/ml (0.550-4.780); TOTAL PROTEIN 7.3 gm/dL (6.0-8.0); TRIGLYCERIDES 189 mg/dl (<150)
[2022-08-02 16:33] LABS: VITAMIN D, 25-HYDROXY 51.2 ng/mL (30-100)
== END | disposition home or self-care (01) ==
LOC: LAB 15:41
PROVIDERS: ATTEND Internal Medicine
DX: Z13.0 Encounter for screening for diseases of the blood and blood-forming organs and certain disorders involving the immune mechanism (principal); E11.9 Type 2 diabetes mellitus without complications; E55.9 Vitamin D deficiency, unspecified; E03.9 Hypothyroidism, unspecified; D51.9 Vitamin B12 deficiency anemia, unspecified; I10 Essential (primary) hypertension; Z13.1 Encounter for screening for diabetes mellitus; Z13.21 Encounter for screening for nutritional disorder; Z13.220 Encounter for screening for lipoid disorders; Z13.228 Encounter for screening for other metabolic disorders; Z13.29 Encounter for screening for other suspected endocrine disorder; Z13.6 Encounter for screening for cardiovascular disorders; Z13.89 Encounter for screening for other disorder; Z13.9 Encounter for screening, unspecified

== ENCOUNTER → 2022-08-26 | Outpatient (CLI) | payer OTHER | END | disposition home or self-care (01) | LOC: US 13:58 | PROVIDERS: ATTEND Urology | DX: N43.3 Hydrocele, unspecified (principal); N50.819 Testicular pain, unspecified; N20.0 Calculus of kidney ==

== ENCOUNTER → 2023-04-13 | Outpatient (CLI) | payer MEDICARE ==
[2023-04-13 09:55] LABS: BASO % 0.3 % (0.0-1.0); EOS % 0.3 % (1.0-4.0); HEMATOCRIT 43.1 % (42.0-52.0); LYMPH # 1.3 10*3/uL (1.3-4.4); LYMPH % 12.8 % (27.0-41.0); MEAN CELL VOLUME 89.4 fl (80.0-94.0); MEAN CORPUSCULAR HGB 28.8 pg (27.0-31.0); MEAN CORPUSCULAR HGB CONC 32.3 g/dl (33.0-37.0); MEAN PLATELET VOLUME 10.6 fl (9.6-12.3); MONO # 0.6 10*3/uL (0.1-1.0); MONO % 6.2 % (3.0-9.0); NEUT # 8.2 10*3/uL (2.3-7.9); NEUT % 80.1 % (47.0-73.0); PLATELET COUNT AUTOMATED 160 10*3/uL (130-400); RED BLOOD COUNT 4.82 10*6/uL (4.50-5.90); RED CELL DISTRI WIDTH 12.8 % (0-14.5); WHITE BLOOD COUNT 10.2 10*3/uL (4.8-10.8)
[2023-04-13 09:58] LABS: BILIRUBIN Negative (Negative); BLOOD Negative (Negative); CLARITY Clear (Clear); COLOR Yellow (Yellow); GLUCOSE Negative (Negative); KETONE Negative (Negative); LEUKO ESTERASE Trace (Negative); NITRITE Negative (Negative); UROBILINOGEN 0.2 E.U./dl (0.0-1.0)
[2023-04-13 10:13] LABS: BACTERIA 2+; RBC 0-2 rbc/hpf (0-2)
[2023-04-13 10:28] LABS: ALKALINE PHOSPHATASE 105 U/L (46-116); BUN 8 mg/dl (9-23); CHLORIDE 105 mmol/L (98-107); POTASSIUM 3.2 mmol/L (3.4-5.1); SGPT/ALT 9 U/L (5-49); TOTAL PROTEIN 7.4 gm/dL (6.0-8.0)
== END | disposition home or self-care (01) ==
LOC: LAB 09:29
PROVIDERS: ATTEND Urology
DX: Z01.818 Encounter for other preprocedural examination (principal); N39.0 Urinary tract infection, site not specified; I10 Essential (primary) hypertension; J43.9 Emphysema, unspecified; I49.8 Other specified cardiac arrhythmias

== ENCOUNTER 2023-04-24 19:05 | Emergency (ER) | payer MEDICARE ==
[~2023-04-24 19:05] MED LIST changes: +METOCLOPRAMIDE5 MG PO; +PRESERVISION A1 EAC3 PO
[2023-04-24 19:57] LABS: BASO % 0.2 % (0.0-1.0); EOS # 0.3 10*3/uL (0.0-0.4); EOS % 3.6 % (1.0-4.0); LYMPH # 0.8 10*3/uL (1.3-4.4); LYMPH % 8.6 % (27.0-41.0); MEAN CELL VOLUME 88.9 fl (80.0-94.0); MEAN CORPUSCULAR HGB 28.9 pg (27.0-31.0); MEAN CORPUSCULAR HGB CONC 32.5 g/dl (33.0-37.0); MEAN PLATELET VOLUME 11.4 fl (9.6-12.3); MONO # 0.6 10*3/uL (0.1-1.0); MONO % 6.7 % (3.0-9.0); NEUT # 7.1 10*3/uL (2.3-7.9); NEUT % 80.4 % (47.0-73.0); PLATELET COUNT AUTOMATED 182 10*3/uL (130-400); RED CELL DISTRI WIDTH 12.3 % (0-14.5); WHITE BLOOD COUNT 8.8 10*3/uL (4.8-10.8)
[2023-04-24 20:07] LABS: ACT PARTIAL THROMBO TIME 34.1 SECONDS (20.0-32.1)
[2023-04-24 20:20] LABS: ALKALINE PHOSPHATASE 292 U/L (46-116); BUN 13 mg/dl (9-23); CHLORIDE 100 mmol/L (98-107); LIPASE 59 U/L (12-53); POTASSIUM 2.9 mmol/L (3.4-5.1); SGPT/ALT 170 U/L (5-49); TOTAL PROTEIN 7.2 gm/dL (6.0-8.0)
[2023-04-27] MEDS ORDERED: VITAMIN D250 MC1 PO (18:29)
[2023-04-27] MEDS ORDERED: B121000 MCG/1 IM (18:30)
[2023-04-27] MEDS ORDERED: FINASTERIDE5 M1 PO (18:31)
[2023-04-27] MEDS ORDERED: SYMB160 INH (18:35)
== END 2023-04-24 23:35 | disposition home or self-care (01) ==
LOC: ED 19:05
PROVIDERS: Internal Medicine
DX: T82.514A Breakdown (mechanical) of infusion catheter, initial encounter (principal); R10.2 Pelvic and perineal pain; Z88.2 Allergy status to sulfonamides; Z88.8 Allergy status to other drugs, medicaments and biological substances; Z98.890 Other specified postprocedural states

== ENCOUNTER → 2023-05-09 | Outpatient (CLI) | payer MEDICARE ==
[~2023-05-09] MED LIST changes: +B121000 MCG/1 IM; +FINASTERIDE5 M1 PO; +SYMB160 INH; +VITAMIN D250 MC1 PO
== END ==
LOC: NM 01:19
PROVIDERS: ATTEND Internal Medicine
DX: R94.5 Abnormal results of liver function studies (principal); J44.9 Chronic obstructive pulmonary disease, unspecified; K21.9 Gastro-esophageal reflux disease without esophagitis

== ENCOUNTER 2023-09-12 09:30 | Emergency (ER) | payer MEDICARE ==
[~2023-09-12] VITALS: Ht 170.1 cm
[2023-09-12] MEDS ORDERED: BREO ELLIPTA 11 EACH INH (09:52)
[2023-09-12] MEDS ORDERED: Lidocaine Hydrochloride 15 ML UDC PO STA (10:02)
[2023-09-12] MEDS ORDERED: MG-AL HYDROXIDE/SIMETICONE 30 ML UDC PO STA (10:02)
[2023-09-12] MEDS ORDERED: Dicyclomine Hydrochloride 20 MG/10 ML OSYR PO STA (10:02)
[2023-09-12] MEDS ORDERED: SODIUM CHLORIDE 0.9% 1,000 ML IV ONE (10:05)
[2023-09-12] MEDS ORDERED: IOHEXOL 300 MG/ML 100 ML VIAL IV ONE (10:20)
[2023-09-12 10:57] LABS: BASO % 0.2 % (0.0-1.0); EOS % 0.2 % (1.0-4.0); HEMATOCRIT 41.5 % (42.0-52.0); LYMPH # 0.9 10*3/uL (1.3-4.4); LYMPH % 8.8 % (27.0-41.0); MEAN CELL VOLUME 89.1 fl (80.0-94.0); MEAN CORPUSCULAR HGB 29.4 pg (27.0-31.0); MEAN PLATELET VOLUME 11.3 fl (9.6-12.3); MONO # 0.7 10*3/uL (0.1-1.0); MONO % 6.2 % (3.0-9.0); NEUT # 8.9 10*3/uL (2.3-7.9); NEUT % 84.2 % (47.0-73.0); PLATELET COUNT AUTOMATED 213 10*3/uL (130-400); RED BLOOD COUNT 4.66 10*6/uL (4.50-5.90); RED CELL DISTRI WIDTH 12.6 % (0-14.5); WHITE BLOOD COUNT 10.5 10*3/uL (4.8-10.8)
[2023-09-12 11:00] LABS: BILIRUBIN Negative (Negative); BLOOD Negative (Negative); CLARITY Clear (Clear); COLOR Yellow (Yellow); GLUCOSE Negative (Negative); KETONE 1+ (Negative); LEUKO ESTERASE 1+ (Negative); NITRITE Positive (Negative); UROBILINOGEN 0.2 E.U./dl (0.0-1.0)
[2023-09-12 11:08] LABS: ACT PARTIAL THROMBO TIME 26.1 SECONDS (20.0-32.1)
[2023-09-12 11:19] LABS: ALKALINE PHOSPHATASE 98 U/L (46-116); BUN 13 mg/dl (9-23); CHLORIDE 101 mmol/L (98-107); LIPASE 40 U/L (12-53); SGPT/ALT 44 U/L (5-49); TOTAL PROTEIN 7.4 gm/dL (6.0-8.0)
[2023-09-12] MEDS ORDERED: POTASSIUM CHLORIDE 20 MEQ TAB PO ONE ×2 (11:35→14:00)
[2023-09-12 11:37] LABS: BACTERIA 4+
[2023-09-12] MEDS ORDERED: CIPRO500 MG PO (13:57)
[2023-09-12] MEDS ORDERED: MAGNESIUM CITRATE 296 ML BOT PO ONE (14:00)
== END 2023-09-12 14:18 | disposition home or self-care (01) ==
LOC: ED 09:30
PROVIDERS: Internal Medicine
DX: K29.70 Gastritis, unspecified, without bleeding (principal); K59.00 Constipation, unspecified; N39.0 Urinary tract infection, site not specified; Z88.2 Allergy status to sulfonamides; Z88.8 Allergy status to other drugs, medicaments and biological substances; Z98.890 Other specified postprocedural states

== ENCOUNTER → 2023-11-21 | Outpatient (CLI) | payer MEDICARE ==
[~2023-11-21] MED LIST changes: +BREO ELLIPTA 11 EACH INH
[2023-11-21 13:41] LABS: BASO % 0.5 % (0.0-1.0); EOS # 0.2 10*3/uL (0.0-0.4); EOS % 2.5 % (1.0-4.0); HEMATOCRIT 41.8 % (42.0-52.0); LYMPH # 2.2 10*3/uL (1.3-4.4); LYMPH % 30.2 % (27.0-41.0); MEAN CELL VOLUME 91.1 fl (80.0-94.0); MEAN CORPUSCULAR HGB CONC 31.8 g/dl (33.0-37.0); MEAN PLATELET VOLUME 10.9 fl (9.6-12.3); MONO # 0.4 10*3/uL (0.1-1.0); NEUT # 4.4 10*3/uL (2.3-7.9); NEUT % 60.5 % (47.0-73.0); PLATELET COUNT AUTOMATED 190 10*3/uL (130-400); RED BLOOD COUNT 4.59 10*6/uL (4.50-5.90); RED CELL DISTRI WIDTH 12.5 % (0-14.5); WHITE BLOOD COUNT 7.3 10*3/uL (4.8-10.8)
[2023-11-21 14:32] LABS: ALKALINE PHOSPHATASE 116 U/L (46-116); BUN 9 mg/dl (9-23); CHLORIDE 104 mmol/L (98-107); CHOLESTEROL 153 mg/dL (<200); FREE T4 1.03 ng/dl (0.89-1.76); LDL CHOLESTEROL 80 mg/dL (9-159); POTASSIUM 3.8 mmol/L (3.4-5.1); SGPT/ALT 8 U/L (5-49); TOTAL PROTEIN 7.2 gm/dL (6.0-8.0); TRIGLYCERIDES 102 mg/dl (<150)
[2023-11-21 14:33] LABS: VITAMIN D, 25-HYDROXY 68.7 ng/mL (30-100)
== END | disposition home or self-care (01) ==
LOC: LAB 13:16
PROVIDERS: ATTEND Internal Medicine
DX: Z13.220 Encounter for screening for lipoid disorders (principal); Z13.89 Encounter for screening for other disorder; Z13.6 Encounter for screening for cardiovascular disorders; Z13.228 Encounter for screening for other metabolic disorders; Z13.21 Encounter for screening for nutritional disorder; Z13.1 Encounter for screening for diabetes mellitus; Z13.0 Encounter for screening for diseases of the blood and blood-forming organs and certain disorders involving the immune mechanism; C60.9 Malignant neoplasm of penis, unspecified; D51.9 Vitamin B12 deficiency anemia, unspecified; E55.9 Vitamin D deficiency, unspecified; N40.1 Benign prostatic hyperplasia with lower urinary tract symptoms; I10 Essential (primary) hypertension; M48.062 Spinal stenosis, lumbar region with neurogenic claudication; E03.9 Hypothyroidism, unspecified; E87.6 Hypokalemia; K21.9 Gastro-esophageal reflux disease without esophagitis

== ENCOUNTER → 2024-09-20 | Outpatient (CLI) | payer OTHER | END | disposition home or self-care (01) | LOC: CARD 09:30 | PROVIDERS: ATTEND Internal Medicine | DX: I08.3 Combined rheumatic disorders of mitral, aortic and tricuspid valves (principal); R06.02 Shortness of breath ==

== ENCOUNTER → 2025-03-13 | Outpatient (CLI) | payer OTHER ==
[2025-03-13 12:16] LABS: BUN 12 mg/dl (9-23); SGPT/ALT 134 U/L (5-49)
== END | disposition home or self-care (01) ==
LOC: LAB 10:15
PROVIDERS: ATTEND Nurse Practitioner
DX: K80.20 Calculus of gallbladder without cholecystitis without obstruction (principal)